=== PATIENT | female | born 1935 | race Caucasian/White ===

== ENCOUNTER 2019-01-15 13:41 | Inpatient (IN) | payer MEDICARE ==
[~2019-01-15] VITALS: Ht 157.5 cm; Wt 89.0 kg
[2019-01-15 14:36] LABS: BILIRUBIN,URINE NEGATIVE (NEG); CLARITY,URINE CLEAR; COLOR,URINE YELLOW; NITRITE,URINE NEGATIVE (NEG); PH,URINE 6.5; PROTEIN,URINE NEGATIVE (NEG-TRACE)
[2019-01-15 14:43] LABS: BACTERIA,URINE MANY /HPF (0-FEW); RBC,URINE OCC /HPF (0-2); SQUAMOUS EPITHELIAL CELL,UR MANY /LPF
--- NOTE | 2019-01-15 14:49 | RAD ---
EXAM: Chest, single view. HISTORY: Dyspnea on exertion. COMPARISON: None. FINDINGS: A frontal view of the chest is obtained. There is no infiltrate, pleural effusion or pneumothorax. There is stable elevation of the right hemidiaphragm. There is a stable prominent cardiac silhouette. IMPRESSION: No acute pulmonary finding. Electronically signed by: Darcie Lewis MD (01/15/2019 2:46 PM) [id number]
--- NOTE | 2019-01-15 14:54 | PHYS DOC ---
Adult General Chief Complaint Chief Complaint: HYPERTENSION HPI HPI Patient is an 83-year-old female who presents from accessibility lift technician's office with report of elevated blood pressure. Patient indicates that she is not really having any symptoms associated with the elevated blood pressure but her accessibility lift technician became concerned when she saw that pressure was in the 200s systolic. She denies any headache or chest pain. She does indicate that she has some shortness of breath but states that that is chronic in nature. She states that the shortness of breath is worsened on exertion. She denies any palpitations as well.[] Review of Systems Review of Systems Constitutional: Denies fever or chills [] Respiratory: Positive exertional shortness of breath [] Cardiovascular: No additional information not addressed in HPI [] GI: Denies abdominal pain, nausea, vomiting or diarrhea [] Integument: Denies rash or skin lesions [] Neurologic: Denies headache, focal weakness or sensory changes [] All other systems were reviewed and found to be within normal limits, except as documented in this note. Current Medications Current Medications Current Medications Medications (Trade) Dose Ordered Sig/Ricardo Start Time Stop Time Status Last Admin Dose Admin Diltiazem HCl (Cardizem Iv Push) 20 mg 1X ONCE 01/15/19 15:30 01/15/19 15:31 DC 01/15/19 15:32 20 MG Allergies Allergies Allergies Coded Allergies Type Severity Reaction Last Updated Verified cephalexin Allergy Intermediate rash 01/15/19 Yes naproxen Allergy Intermediate rash/hives 01/15/19 Yes Penicillins Allergy Unknown 01/15/19 Yes allopurinol Allergy Unknown 01/15/19 Yes azithromycin Allergy Unknown "made me sick" 01/15/19 Yes doxycycline Allergy Unknown 01/15/19 Yes omeprazole Allergy Unknown 01/15/19 Yes Physical Exam Physical Exam Constitutional: Well developed, well nourished, no acute distress, non-toxic appearance. [] HENT: Normocephalic, atraumatic, bilateral external ears normal, oropharynx moist, no oral exudates, nose normal. [] Eyes: PERRLA, EOMI, conjunctiva normal, no discharge. [] Neck: Normal range of motion, no tenderness, supple, no stridor. [] Cardiovascular: Tachycardic rate with irregular rhythm[] Lungs & Thorax: Bilateral breath sounds clear to auscultation [] Abdomen: Bowel sounds normal, soft, no tenderness. [] Skin: Warm, dry, no erythema, no rash. [] Extremities: No tenderness, no cyanosis, no clubbing, ROM intact, with bilateral lower extremity nonpitting edema. [] Neurologic: Alert and oriented X 3, no focal deficits noted. [] Current Patient Data Vital Signs Vital Signs Date Time Temp Pulse Resp B/P (MAP) Pulse Ox O2 Delivery O2 Flow Rate FiO2 01/15/19 15:32 97 211/114 01/15/19 14:20 97.9 20 97 Room Air 97.9 Lab Values Laboratory Tests Test 01/15/19 14:15 01/15/19 14:58 Urine Collection Type Void Urine Color Yellow Urine Clarity Clear Urine pH 6.5 Urine Specific [place] 1.015 Urine Protein Negative mg/dL (NEG-TRACE) Urine Glucose (UA) Negative mg/dL (NEG) Urine Ketones (Stick) Negative mg/dL (NEG) Urine Blood Negative (NEG) Urine Nitrite Negative (NEG) Urine Bilirubin Negative (NEG) Urine Urobilinogen Dipstick 1.0 mg/dL (0.2 mg/dL) Urine Leukocyte Esterase Trace (NEG) Urine RBC Occ /HPF (0-2) Urine WBC 1-4 /HPF (0-4) Urine Squamous Epithelial Cells Many /LPF Urine Bacteria Many /HPF (0-FEW) White Blood Count 13.6 x10^3/uL (4.0-11.0) H Red Blood Count 5.33 x10^6/uL (3.50-5.40) Hemoglobin 15.7 g/dL (12.0-15.5) H Hematocrit 47.5 % (36.0-47.0) H Mean Corpuscular Volume 89 fL (79-100) Mean Corpuscular Hemoglobin 30 pg (25-35) Mean Corpuscular Hemoglobin Concent 33 g/dL (31-37) Red Cell Distribution Width 14.5 % (11.5-14.5) Platelet Count 243 x10^3/uL (140-400) Neutrophils (%) (Auto) 79 % (31-73) H Lymphocytes (%) (Auto) 7 % (24-48) L Monocytes (%) (Auto) 13 % (0-9) H Eosinophils (%) (Auto) 1 % (0-3) Basophils (%) (Auto) 1 % (0-3) Neutrophils # (Auto) 10.7 x10^3/uL (1.8-7.7) H Lymphocytes # (Auto) 1.0 x10^3/uL (1.0-4.8) Monocytes # (Auto) 1.7 x10^3/uL (0.0-1.1) H Eosinophils # (Auto) 0.1 x10^3/uL (0.0-0.7) Basophils # (Auto) 0.1 x10^3/uL (0.0-0.2) Sodium Level 137 mmol/L (136-145) Potassium Level 4.5 mmol/L (3.5-5.1) Chloride Level 103 mmol/L (98-107) Carbon Dioxide Level 29 mmol/L (21-32) Anion Gap 5 (6-14) L Blood Urea Nitrogen 23 mg/dL (7-20) H Creatinine 1.3 mg/dL (0.6-1.0) H Estimated GFR (Cockcroft-Gault) 39.0 BUN/Creatinine Ratio 18 (6-20) Glucose Level 85 mg/dL (70-99) Calcium Level 9.3 mg/dL (8.5-10.1) Magnesium Level 2.0 mg/dL (1.8-2.4) Total Bilirubin 1.0 mg/dL (0.2-1.0) Aspartate Amino Transferase (AST) 13 U/L (15-37) L Alanine Aminotransferase (ALT) 12 U/L (14-59) L Alkaline Phosphatase 80 U/L (46-116) Troponin I Quantitative < 0.017 ng/mL (0.000-0.055) ZV-Mji-N-Type Natriuretic Peptide 6516 pg/mL (0-449) H Total Protein 7.0 g/dL (6.4-8.2) Albumin 3.6 g/dL (3.4-5.0) Albumin/Globulin Ratio 1.1 (1.0-1.7) Laboratory Tests 01/15/19 14:58 Laboratory Tests 01/15/19 14:58 EKG EKG [] Interpretation Time: EKG demonstrates atrial fibrillation with rapid ventricular response of 103. Radiology/Procedures Radiology/Procedures [] Impressions: PROCEDURE: PORTABLE CHEST 1V EXAM: Chest, single view. HISTORY: Dyspnea on exertion. COMPARISON: None. FINDINGS: A frontal view of the chest is obtained. There is no infiltrate, pleural effusion or pneumothorax. There is stable elevation of the right hemidiaphragm. There is a stable prominent cardiac silhouette. IMPRESSION: No acute pulmonary finding. Electronically signed by: Darcie Lewis MD (01/15/2019 2:46 PM) [facility] Course & Med Decision Making Course & Med Decision Making Pertinent Labs and Imaging studies reviewed. (See chart for details) [] Dragon Disclaimer Dragon Disclaimer This electronic medical record was generated, in whole or in part, using a voice recognition dictation system. Departure Departure Impression: Primary Impression: Atrial fibrillation with rapid ventricular response Additional Impression: Hypertensive urgency Disposition: 09 ADMITTED INPATIENT Admitting Physician: MARYCRUZ (Dr. Olea) Condition: IMPROVED Referrals: BLAIRE MORGAN (PCP) Problem Qualifiers PRESTON CHAPA Jr. DO Jan 15, 2019 14:54
[2019-01-15 15:06] LABS: BASO # 0.1 x10^3/uL (0.0-0.2); BASO % 1 % (0-3); EOS # 0.1 x10^3/uL (0.0-0.7); EOS % 1 % (0-3); HEMATOCRIT 47.5 % (36.0-47.0); HEMOGLOBIN 15.7 g/dL (12.0-15.5); LYMPH % 7 % (24-48); MEAN CORPUSCULAR HEMOGLOBIN 30 pg (25-35); MEAN CORPUSCULAR HGB CONC 33 g/dL (31-37); MEAN CORPUSCULAR VOLUME 89 fL (79-100); MONO # 1.7 x10^3/uL (0.0-1.1); MONO % 13 % (0-9); NEUT # 10.7 x10^3/uL (1.8-7.7); NEUT % 79 % (31-73); PLATELET COUNT 243 x10^3/uL (140-400); RED BLOOD COUNT 5.33 x10^6/uL (3.50-5.40); RED CELL DISTRIBUTION WIDTH 14.5 % (11.5-14.5); WHITE BLOOD COUNT 13.6 x10^3/uL (4.0-11.0)
[2019-01-15 15:18] LABS: CALCIUM 9.3 mg/dL (8.5-10.1); CREATININE 1.3 mg/dL (0.6-1.0); POTASSIUM 4.5 mmol/L (3.5-5.1)
[2019-01-15 15:22] LABS: ALBUMIN 3.6 g/dL (3.4-5.0); ALBUMIN/GLOBULIN RATIO 1.1 (1.0-1.7)
--- NOTE | 2019-01-15 15:23 | PDOC1 ---
History and Physical Date of Admission Date of Admission DATE: 01/15/19 TIME: 13:23 Identification/Chief Complaint Chief Complaint SEEN IN er, bp elevated in a-fib new onset rvr , presents from asset protection manager's office with report of elevated blood pressure. Patient indicates that she is not really having any symptoms associated with the elevated blood pressure but her asset protection manager became concerned when she saw that pressure was in the 200s systolic. She denies any headache or chest pain. She does indicate that she has some shortness of breath but states that that is chronic in nature. Past Medical History Cardiovascular: Hyperlipidemia Musculoskeletal: Osteoarthritis Infectious disease: No pertinent hx Renal/: Chronic renal insuff Family History Family History: High Cholestrol, Hypertension Social History Smoke: No ALCOHOL: none Drugs: None Current Medications Current Medications Current Medications Diltiazem HCl (Cardizem Iv Push) 20 mg 1X ONCE IVP ; Start 01/15/19 at 15:30; Stop 01/15/19 at 15:31 Allergies Allergies: Coded Allergies: cephalexin (Verified Allergy, Intermediate, rash, 01/15/19) naproxen (Verified Allergy, Intermediate, rash/hives, 01/15/19) Penicillins (Verified Allergy, Unknown, 01/15/19) allopurinol (Verified Allergy, Unknown, 01/15/19) azithromycin (Verified Allergy, Unknown, "made me sick", 01/15/19) doxycycline (Verified Allergy, Unknown, 01/15/19) omeprazole (Verified Allergy, Unknown, 01/15/19) ROS Review of System Review of Systems Review of Systems Constitutional: Denies fever or chills [] Respiratory: Positive exertional shortness of breath [] Cardiovascular: No additional information not addressed in HPI [] GI: Denies abdominal pain, nausea, vomiting or diarrhea [] Integument: Denies rash or skin lesions [] Neurologic: Denies headache, focal weakness or sensory changes [] 14 pt systems were reviewed and found to be within normal limits, except as documented Respiratory: YES: Shortness of breath, SOB with excertion Cardiovascular: yes Palpitations Gastrointestinal: No Nausea, No Vomiting, No Abdominal Pain, No Diarrhea, No Constipation, No Melena, No Hematochezia, No Other Musculoskeletal: Yes Joint Stiffness Neurological: Yes Gait Disturbance Physical Exam Physical Exam Physical Exam Physical Exam Constitutional: Well developed, well nourished, no acute distress, non-toxic a ppearance. [] HENT: Normocephalic, atraumatic, bilateral external ears normal, oropharynx moist, no oral exudates, nose normal. [] Eyes: PERRLA, EOMI, conjunctiva normal, no discharge. [] Neck: Normal range of motion, no tenderness, supple, no stridor. [] Cardiovascular: Tachycardic rate with irregular rhythm[] Lungs & Thorax: Bilateral breath sounds clear to auscultation [] Abdomen: Bowel sounds normal, soft, no tenderness. [] Skin: Warm, dry, no erythema, no rash. [] Extremities: No tenderness, no cyanosis, no clubbing, ROM intact, with bilateral lower extremity nonpitting edema. [] Neurologic: Alert and oriented X 3, no focal deficits noted. [] General: Alert, Oriented X3, Cooperative, No acute distress HEENT: Atraumatic, PERRLA Lungs: Clear to auscultation Heart: irregularly irregular Breasts: Not examined Abdomen: Normal bowel sounds, Soft Rectal Exam: not examined Extremities: No clubbing, No cyanosis Neuro: Normal speech, Cranial nerves 3-12 NL Psych/Mental Status: Mental status NL, Mood NL Vitals Vitals Vital Signs Date Time Temp Pulse Resp B/P (MAP) Pulse Ox O2 Delivery O2 Flow Rate FiO2 01/15/19 14:20 97.9 112 20 186/111 (136) 97 Room Air 97.9 Labs Labs Laboratory Tests Test 01/15/19 14:15 01/15/19 14:58 Urine Collection Type Void Urine Color Yellow Urine Clarity Clear Urine pH 6.5 Urine Specific [place] 1.015 Urine Protein Negative mg/dL (NEG-TRACE) Urine Glucose (UA) Negative mg/dL (NEG) Urine Ketones (Stick) Negative mg/dL (NEG) Urine Blood Negative (NEG) Urine Nitrite Negative (NEG) Urine Bilirubin Negative (NEG) Urine Urobilinogen Dipstick 1.0 mg/dL (0.2 mg/dL) Urine Leukocyte Esterase Trace (NEG) Urine RBC Occ /HPF (0-2) Urine WBC 1-4 /HPF (0-4) Urine Squamous Epithelial Cells Many /LPF Urine Bacteria Many /HPF (0-FEW) White Blood Count 13.6 x10^3/uL (4.0-11.0) Red Blood Count 5.33 x10^6/uL (3.50-5.40) Hemoglobin 15.7 g/dL (12.0-15.5) Hematocrit 47.5 % (36.0-47.0) Mean Corpuscular Volume 89 fL (79-100) Mean Corpuscular Hemoglobin 30 pg (25-35) Mean Corpuscular Hemoglobin Concent 33 g/dL (31-37) Red Cell Distribution Width 14.5 % (11.5-14.5) Platelet Count 243 x10^3/uL (140-400) Neutrophils (%) (Auto) 79 % (31-73) Lymphocytes (%) (Auto) 7 % (24-48) Monocytes (%) (Auto) 13 % (0-9) Eosinophils (%) (Auto) 1 % (0-3) Basophils (%) (Auto) 1 % (0-3) Neutrophils # (Auto) 10.7 x10^3/uL (1.8-7.7) Lymphocytes # (Auto) 1.0 x10^3/uL (1.0-4.8) Monocytes # (Auto) 1.7 x10^3/uL (0.0-1.1) Eosinophils # (Auto) 0.1 x10^3/uL (0.0-0.7) Basophils # (Auto) 0.1 x10^3/uL (0.0-0.2) Sodium Level 137 mmol/L (136-145) Potassium Level 4.5 mmol/L (3.5-5.1) Chloride Level 103 mmol/L (98-107) Carbon Dioxide Level 29 mmol/L (21-32) Anion Gap 5 (6-14) Blood Urea Nitrogen 23 mg/dL (7-20) Creatinine 1.3 mg/dL (0.6-1.0) Estimated GFR (Cockcroft-Gault) 39.0 BUN/Creatinine Ratio 18 (6-20) Glucose Level 85 mg/dL (70-99) Calcium Level 9.3 mg/dL (8.5-10.1) Magnesium Level 2.0 mg/dL (1.8-2.4) Total Bilirubin 1.0 mg/dL (0.2-1.0) Aspartate Amino Transf (AST/SGOT) 13 U/L (15-37) Alanine Aminotransferase (ALT/SGPT) 12 U/L (14-59) Alkaline Phosphatase 80 U/L (46-116) Total Protein 7.0 g/dL (6.4-8.2) Albumin 3.6 g/dL (3.4-5.0) Albumin/Globulin Ratio 1.1 (1.0-1.7) Laboratory Tests Test 01/15/19 14:15 01/15/19 14:58 Urine Collection Type Void Urine Color Yellow Urine Clarity Clear Urine pH 6.5 Urine Specific [place] 1.015 Urine Protein Negative mg/dL (NEG-TRACE) Urine Glucose (UA) Negative mg/dL (NEG) Urine Ketones (Stick) Negative mg/dL (NEG) Urine Blood Negative (NEG) Urine Nitrite Negative (NEG) Urine Bilirubin Negative (NEG) Urine Urobilinogen Dipstick 1.0 mg/dL (0.2 mg/dL) Urine Leukocyte Esterase Trace (NEG) Urine RBC Occ /HPF (0-2) Urine WBC 1-4 /HPF (0-4) Urine Squamous Epithelial Cells Many /LPF Urine Bacteria Many /HPF (0-FEW) White Blood Count 13.6 x10^3/uL (4.0-11.0) Red Blood Count 5.33 x10^6/uL (3.50-5.40) Hemoglobin 15.7 g/dL (12.0-15.5) Hematocrit 47.5 % (36.0-47.0) Mean Corpuscular Volume 89 fL (79-100) Mean Corpuscular Hemoglobin 30 pg (25-35) Mean Corpuscular Hemoglobin Concent 33 g/dL (31-37) Red Cell Distribution Width 14.5 % (11.5-14.5) Platelet Count 243 x10^3/uL (140-400) Neutrophils (%) (Auto) 79 % (31-73) Lymphocytes (%) (Auto) 7 % (24-48) Monocytes (%) (Auto) 13 % (0-9) Eosinophils (%) (Auto) 1 % (0-3) Basophils (%) (Auto) 1 % (0-3) Neutrophils # (Auto) 10.7 x10^3/uL (1.8-7.7) Lymphocytes # (Auto) 1.0 x10^3/uL (1.0-4.8) Monocytes # (Auto) 1.7 x10^3/uL (0.0-1.1) Eosinophils # (Auto) 0.1 x10^3/uL (0.0-0.7) Basophils # (Auto) 0.1 x10^3/uL (0.0-0.2) Sodium Level 137 mmol/L (136-145) Potassium Level 4.5 mmol/L (3.5-5.1) Chloride Level 103 mmol/L (98-107) Carbon Dioxide Level 29 mmol/L (21-32) Anion Gap 5 (6-14) Blood Urea Nitrogen 23 mg/dL (7-20) Creatinine 1.3 mg/dL (0.6-1.0) Estimated GFR (Cockcroft-Gault) 39.0 BUN/Creatinine Ratio 18 (6-20) Glucose Level 85 mg/dL (70-99) Calcium Level 9.3 mg/dL (8.5-10.1) Magnesium Level 2.0 mg/dL (1.8-2.4) Total Bilirubin 1.0 mg/dL (0.2-1.0) Aspartate Amino Transf (AST/SGOT) 13 U/L (15-37) Alanine Aminotransferase (ALT/SGPT) 12 U/L (14-59) Alkaline Phosphatase 80 U/L (46-116) Total Protein 7.0 g/dL (6.4-8.2) Albumin 3.6 g/dL (3.4-5.0) Albumin/Globulin Ratio 1.1 (1.0-1.7) VTE Prophylaxis Ordered VTE Prophylaxis Devices: Yes VTE Pharmacological Prophylaxi: Yes Assessment/Plan Assessment/Plan impression 1. hypertensive urgency 2. new onset a- fib rvr 3. morbid obesity plan admit iv cardizem cardiology consult tsh dvt prophylaxis echo 55 min pt exam, chart review, > 50% of time spent with exam, chart review, pt care coordination VIPIN VAN MD Jan 15, 2019 15:23
--- NOTE | 2019-01-15 15:24 | EKG ---
[facility] [address] [place] [address] Test Date: 2019-01-15 Test Time: 14:54:49 Pat Name: LIGIA MATUTE Department: Room: Gender: F Hand Singer: : [phone] Requested By: PRESTON CHAPA Order Number: [id number] Reading MD: Measurements Intervals [place] Rate: 102 P: MD: QRS: -13 QRSD: 102 T: -7 QT: 342 QTc: 450 Interpretive Statements ATRIAL FIB./FLUTTER WITH RAPID VENTRICULAR RESPONSE LEFTWARD AXIS QRS(T) CONTOUR ABNORMALITY CONSISTENT WITH ANTEROSEPTAL INFARCT PROBABLY OLD ABNORMAL ECG No previous ECG available for comparison
[2019-01-15] MEDS ORDERED: dilTIAZem IV PUSH 25 MG/5 ML VIAL IVP ONE (15:30)
[2019-01-15] MEDS ORDERED: ONDANSETRON PF 4 MG/2 ML VIAL. IV PRN ×2 (15:45→16:30)
[2019-01-15] MEDS ORDERED: MORPHINE SULFATE 2 MG/ML VIAL. IV PRN (15:45)
[2019-01-15] MEDS ORDERED: 0.9 % SODIUM CHLORIDE 10 ML DISP.SYRIN. IV PRN (16:30)
[2019-01-15] MEDS ORDERED: ALBUTEROL SULFATE 2.5 MG/3 ML NEBU. NEB PRN (16:30)
[2019-01-15] MEDS ORDERED: guaiFENesin ORAL 200 MG/10 ML LIQUID. PO PRN (16:30)
[2019-01-15] MEDS ORDERED: ZOLPIDEM 5 MG TABLET. PO PRN (16:30)
[2019-01-15] MEDS ORDERED: LORazepam 0.5 MG TABLET PO PRN (16:30)
[2019-01-15] MEDS ORDERED: ACETAMINOPHEN 325 MG TABLET. PO PRN (16:30)
[2019-01-15] MEDS ORDERED: MAG HYDROX/ALUMINUM HYD/SIMETH 30 ML ORAL.SUSP PO PRN (16:30)
[2019-01-15] MEDS: cloNIDine HCL 0.1 MG TABLET PO PRN ×2 (17:05→23:21)
[2019-01-15 17:30] VITALS: BP 186/92
[2019-01-15] MEDS ORDERED: LISI-334 PO (17:57)
[2019-01-15] MEDS ORDERED: FLUC200T4 PO (17:57)
[2019-01-15] MEDS ORDERED: dilTIAZem INJ 125 MG in IV DEXTROSE 5% 100ML 100 ML IV PRN (18:30)
[2019-01-15 19:09] VITALS: BP 166/78
[2019-01-15] MEDS: hydrALAZINE 20 MG/ML VIAL. IVP PRN (19:50)
[2019-01-15] MEDS: LISINOPRIL 20 MG TABLET PO SCH (20:18)
[2019-01-15 23:09] VITALS: BP 194/105
[2019-01-16 03:06] VITALS: BP 201/96
[2019-01-16] MEDS: hydrALAZINE 20 MG/ML VIAL. IVP PRN (03:16)
[2019-01-16 04:20] LABS: BASO % 0 % (0-3); EOS # 0.2 x10^3/uL (0.0-0.7); EOS % 2 % (0-3); HEMATOCRIT 45.1 % (36.0-47.0); HEMOGLOBIN 14.9 g/dL (12.0-15.5); LYMPH # 1.4 x10^3/uL (1.0-4.8); LYMPH % 11 % (24-48); MEAN CORPUSCULAR HEMOGLOBIN 29 pg (25-35); MEAN CORPUSCULAR HGB CONC 33 g/dL (31-37); MEAN CORPUSCULAR VOLUME 89 fL (79-100); MONO # 1.2 x10^3/uL (0.0-1.1); MONO % 9 % (0-9); NEUT % 78 % (31-73); PLATELET COUNT 226 x10^3/uL (140-400); RED BLOOD COUNT 5.08 x10^6/uL (3.50-5.40); RED CELL DISTRIBUTION WIDTH 14.6 % (11.5-14.5); WHITE BLOOD COUNT 12.8 x10^3/uL (4.0-11.0)
[2019-01-16 04:40] LABS: CREATININE 1.4 mg/dL (0.6-1.0); GFR 35.8; POTASSIUM 4.4 mmol/L (3.5-5.1)
[2019-01-16 07:33] VITALS: BP 142/68
[2019-01-16] MEDS: FLUCONAZOLE 100 MG TABLET. PO SCH (09:00)
[2019-01-16] MEDS ORDERED: ENOXAPARIN 40 MG/0.4 ML SYRINGE. SQ SCH (09:00)
--- NOTE | 2019-01-16 09:20 | PDOC ---
PROGRESS NOTES History of Present Illness History of Present Illness VTE Prophylaxis Ordered VTE Prophylaxis Devices: Yes VTE Pharmacological Prophylaxi: Yes Assessment/Plan Assessment/Plan impression 1. hypertensive urgency 2. new onset a- fib rvr 3. morbid obesity 4. HYPERLIPIDEMIA plan admit iv cardizem cardiology consult tsh dvt prophylaxis echo ELIQUIS 26 min pt exam, chart review, > 50% of time spent with exam, chart review, pt care coordination Vitals Vitals Vital Signs Date Time Temp Pulse Resp B/P (MAP) Pulse Ox O2 Delivery O2 Flow Rate FiO2 01/16/19 07:33 98.0 88 16 142/68 (92) 96 Room Air 98.0 Physical Exam General: Alert, Oriented X3, Cooperative, No acute distress Heart: Other (IRR) Abdomen: Normal bowel sounds, Soft, No tenderness Extremities: No clubbing, No cyanosis Labs LABS Laboratory Tests Test 01/15/19 14:15 01/15/19 14:58 01/16/19 04:00 Urine Collection Type Void Urine Color Yellow Urine Clarity Clear Urine pH 6.5 Urine Specific [place] 1.015 Urine Protein Negative mg/dL (NEG-TRACE) Urine Glucose (UA) Negative mg/dL (NEG) Urine Ketones (Stick) Negative mg/dL (NEG) Urine Blood Negative (NEG) Urine Nitrite Negative (NEG) Urine Bilirubin Negative (NEG) Urine Urobilinogen Dipstick 1.0 mg/dL (0.2 mg/dL) Urine Leukocyte Esterase Trace (NEG) Urine RBC Occ /HPF (0-2) Urine WBC 1-4 /HPF (0-4) Urine Squamous Epithelial Cells Many /LPF Urine Bacteria Many /HPF (0-FEW) White Blood Count 13.6 x10^3/uL (4.0-11.0) 12.8 x10^3/uL (4.0-11.0) Red Blood Count 5.33 x10^6/uL (3.50-5.40) 5.08 x10^6/uL (3.50-5.40) Hemoglobin 15.7 g/dL (12.0-15.5) 14.9 g/dL (12.0-15.5) Hematocrit 47.5 % (36.0-47.0) 45.1 % (36.0-47.0) Mean Corpuscular Volume 89 fL (79-100) 89 fL (79-100) Mean Corpuscular Hemoglobin 30 pg (25-35) 29 pg (25-35) Mean Corpuscular Hemoglobin Concent 33 g/dL (31-37) 33 g/dL (31-37) Red Cell Distribution Width 14.5 % (11.5-14.5) 14.6 % (11.5-14.5) Platelet Count 243 x10^3/uL (140-400) 226 x10^3/uL (140-400) Neutrophils (%) (Auto) 79 % (31-73) 78 % (31-73) Lymphocytes (%) (Auto) 7 % (24-48) 11 % (24-48) Monocytes (%) (Auto) 13 % (0-9) 9 % (0-9) Eosinophils (%) (Auto) 1 % (0-3) 2 % (0-3) Basophils (%) (Auto) 1 % (0-3) 0 % (0-3) Neutrophils # (Auto) 10.7 x10^3/uL (1.8-7.7) 10.0 x10^3/uL (1.8-7.7) Lymphocytes # (Auto) 1.0 x10^3/uL (1.0-4.8) 1.4 x10^3/uL (1.0-4.8) Monocytes # (Auto) 1.7 x10^3/uL (0.0-1.1) 1.2 x10^3/uL (0.0-1.1) Eosinophils # (Auto) 0.1 x10^3/uL (0.0-0.7) 0.2 x10^3/uL (0.0-0.7) Basophils # (Auto) 0.1 x10^3/uL (0.0-0.2) 0.0 x10^3/uL (0.0-0.2) Sodium Level 137 mmol/L (136-145) 137 mmol/L (136-145) Potassium Level 4.5 mmol/L (3.5-5.1) 4.4 mmol/L (3.5-5.1) Chloride Level 103 mmol/L (98-107) 103 mmol/L (98-107) Carbon Dioxide Level 29 mmol/L (21-32) 24 mmol/L (21-32) Anion Gap 5 (6-14) 10 (6-14) Blood Urea Nitrogen 23 mg/dL (7-20) 25 mg/dL (7-20) Creatinine 1.3 mg/dL (0.6-1.0) 1.4 mg/dL (0.6-1.0) Estimated GFR (Cockcroft-Gault) 39.0 35.8 BUN/Creatinine Ratio 18 (6-20) Glucose Level 85 mg/dL (70-99) 121 mg/dL (70-99) Calcium Level 9.3 mg/dL (8.5-10.1) 9.0 mg/dL (8.5-10.1) Magnesium Level 2.0 mg/dL (1.8-2.4) Total Bilirubin 1.0 mg/dL (0.2-1.0) Aspartate Amino Transf (AST/SGOT) 13 U/L (15-37) Alanine Aminotransferase (ALT/SGPT) 12 U/L (14-59) Alkaline Phosphatase 80 U/L (46-116) Troponin I Quantitative < 0.017 ng/mL (0.000-0.055) NQ-[id number]-[id number]-Type Natriuretic Peptide 6516 pg/mL (0-449) Total Protein 7.0 g/dL (6.4-8.2) Albumin 3.6 g/dL (3.4-5.0) Albumin/Globulin Ratio 1.1 (1.0-1.7) Thyroid Stimulating Hormone (TSH) 1.416 uIU/mL (0.358-3.74) Assessment and Plan Assessmemt and Plan Problems Medical Problems: (1) Atrial fibrillation with rapid ventricular response Status: Acute (2) Hypertensive urgency Status: Acute Comment Review of Relevant I have reviewed the following items salvador (where applicable) has been applied. Labs Laboratory Tests Test 01/15/19 14:15 01/15/19 14:58 01/16/19 04:00 Urine Collection Type Void Urine Color Yellow Urine Clarity Clear Urine pH 6.5 Urine Specific [place] 1.015 Urine Protein Negative mg/dL (NEG-TRACE) Urine Glucose (UA) Negative mg/dL (NEG) Urine Ketones (Stick) Negative mg/dL (NEG) Urine Blood Negative (NEG) Urine Nitrite Negative (NEG) Urine Bilirubin Negative (NEG) Urine Urobilinogen Dipstick 1.0 mg/dL (0.2 mg/dL) Urine Leukocyte Esterase Trace (NEG) Urine RBC Occ /HPF (0-2) Urine WBC 1-4 /HPF (0-4) Urine Squamous Epithelial Cells Many /LPF Urine Bacteria Many /HPF (0-FEW) White Blood Count 13.6 x10^3/uL (4.0-11.0) 12.8 x10^3/uL (4.0-11.0) Red Blood Count 5.33 x10^6/uL (3.50-5.40) 5.08 x10^6/uL (3.50-5.40) Hemoglobin 15.7 g/dL (12.0-15.5) 14.9 g/dL (12.0-15.5) Hematocrit 47.5 % (36.0-47.0) 45.1 % (36.0-47.0) Mean Corpuscular Volume 89 fL (79-100) 89 fL (79-100) Mean Corpuscular Hemoglobin 30 pg (25-35) 29 pg (25-35) Mean Corpuscular Hemoglobin Concent 33 g/dL (31-37) 33 g/dL (31-37) Red Cell Distribution Width 14.5 % (11.5-14.5) 14.6 % (11.5-14.5) Platelet Count 243 x10^3/uL (140-400) 226 x10^3/uL (140-400) Neutrophils (%) (Auto) 79 % (31-73) 78 % (31-73) Lymphocytes (%) (Auto) 7 % (24-48) 11 % (24-48) Monocytes (%) (Auto) 13 % (0-9) 9 % (0-9) Eosinophils (%) (Auto) 1 % (0-3) 2 % (0-3) Basophils (%) (Auto) 1 % (0-3) 0 % (0-3) Neutrophils # (Auto) 10.7 x10^3/uL (1.8-7.7) 10.0 x10^3/uL (1.8-7.7) Lymphocytes # (Auto) 1.0 x10^3/uL (1.0-4.8) 1.4 x10^3/uL (1.0-4.8) Monocytes # (Auto) 1.7 x10^3/uL (0.0-1.1) 1.2 x10^3/uL (0.0-1.1) Eosinophils # (Auto) 0.1 x10^3/uL (0.0-0.7) 0.2 x10^3/uL (0.0-0.7) Basophils # (Auto) 0.1 x10^3/uL (0.0-0.2) 0.0 x10^3/uL (0.0-0.2) Sodium Level 137 mmol/L (136-145) 137 mmol/L (136-145) Potassium Level 4.5 mmol/L (3.5-5.1) 4.4 mmol/L (3.5-5.1) Chloride Level 103 mmol/L (98-107) 103 mmol/L (98-107) Carbon Dioxide Level 29 mmol/L (21-32) 24 mmol/L (21-32) Anion Gap 5 (6-14) 10 (6-14) Blood Urea Nitrogen 23 mg/dL (7-20) 25 mg/dL (7-20) Creatinine 1.3 mg/dL (0.6-1.0) 1.4 mg/dL (0.6-1.0) Estimated GFR (Cockcroft-Gault) 39.0 35.8 BUN/Creatinine Ratio 18 (6-20) Glucose Level 85 mg/dL (70-99) 121 mg/dL (70-99) Calcium Level 9.3 mg/dL (8.5-10.1) 9.0 mg/dL (8.5-10.1) Magnesium Level 2.0 mg/dL (1.8-2.4) Total Bilirubin 1.0 mg/dL (0.2-1.0) Aspartate Amino Transf (AST/SGOT) 13 U/L (15-37) Alanine Aminotransferase (ALT/SGPT) 12 U/L (14-59) Alkaline Phosphatase 80 U/L (46-116) Troponin I Quantitative < 0.017 ng/mL (0.000-0.055) MI-Zli-K-Type Natriuretic Peptide 6516 pg/mL (0-449) Total Protein 7.0 g/dL (6.4-8.2) Albumin 3.6 g/dL (3.4-5.0) Albumin/Globulin Ratio 1.1 (1.0-1.7) Thyroid Stimulating Hormone (TSH) 1.416 uIU/mL (0.358-3.74) Laboratory Tests Test 01/15/19 14:15 01/15/19 14:58 01/16/19 04:00 Urine Collection Type Void Urine Color Yellow Urine Clarity Clear Urine pH 6.5 Urine Specific [place] 1.015 Urine Protein Negative mg/dL (NEG-TRACE) Urine Glucose (UA) Negative mg/dL (NEG) Urine Ketones (Stick) Negative mg/dL (NEG) Urine Blood Negative (NEG) Urine Nitrite Negative (NEG) Urine Bilirubin Negative (NEG) Urine Urobilinogen Dipstick 1.0 mg/dL (0.2 mg/dL) Urine Leukocyte Esterase Trace (NEG) Urine RBC Occ /HPF (0-2) Urine WBC 1-4 /HPF (0-4) Urine Squamous Epithelial Cells Many /LPF Urine Bacteria Many /HPF (0-FEW) White Blood Count 13.6 x10^3/uL (4.0-11.0) 12.8 x10^3/uL (4.0-11.0) Red Blood Count 5.33 x10^6/uL (3.50-5.40) 5.08 x10^6/uL (3.50-5.40) Hemoglobin 15.7 g/dL (12.0-15.5) 14.9 g/dL (12.0-15.5) Hematocrit 47.5 % (36.0-47.0) 45.1 % (36.0-47.0) Mean Corpuscular Volume 89 fL (79-100) 89 fL (79-100) Mean Corpuscular Hemoglobin 30 pg (25-35) 29 pg (25-35) Mean Corpuscular Hemoglobin Concent 33 g/dL (31-37) 33 g/dL (31-37) Red Cell Distribution Width 14.5 % (11.5-14.5) 14.6 % (11.5-14.5) Platelet Count 243 x10^3/uL (140-400) 226 x10^3/uL (140-400) Neutrophils (%) (Auto) 79 % (31-73) 78 % (31-73) Lymphocytes (%) (Auto) 7 % (24-48) 11 % (24-48) Monocytes (%) (Auto) 13 % (0-9) 9 % (0-9) Eosinophils (%) (Auto) 1 % (0-3) 2 % (0-3) Basophils (%) (Auto) 1 % (0-3) 0 % (0-3) Neutrophils # (Auto) 10.7 x10^3/uL (1.8-7.7) 10.0 x10^3/uL (1.8-7.7) Lymphocytes # (Auto) 1.0 x10^3/uL (1.0-4.8) 1.4 x10^3/uL (1.0-4.8) Monocytes # (Auto) 1.7 x10^3/uL (0.0-1.1) 1.2 x10^3/uL (0.0-1.1) Eosinophils # (Auto) 0.1 x10^3/uL (0.0-0.7) 0.2 x10^3/uL (0.0-0.7) Basophils # (Auto) 0.1 x10^3/uL (0.0-0.2) 0.0 x10^3/uL (0.0-0.2) Sodium Level 137 mmol/L (136-145) 137 mmol/L (136-145) Potassium Level 4.5 mmol/L (3.5-5.1) 4.4 mmol/L (3.5-5.1) Chloride Level 103 mmol/L (98-107) 103 mmol/L (98-107) Carbon Dioxide Level 29 mmol/L (21-32) 24 mmol/L (21-32) Anion Gap 5 (6-14) 10 (6-14) Blood Urea Nitrogen 23 mg/dL (7-20) 25 mg/dL (7-20) Creatinine 1.3 mg/dL (0.6-1.0) 1.4 mg/dL (0.6-1.0) Estimated GFR (Cockcroft-Gault) 39.0 35.8 BUN/Creatinine Ratio 18 (6-20) Glucose Level 85 mg/dL (70-99) 121 mg/dL (70-99) Calcium Level 9.3 mg/dL (8.5-10.1) 9.0 mg/dL (8.5-10.1) Magnesium Level 2.0 mg/dL (1.8-2.4) Total Bilirubin 1.0 mg/dL (0.2-1.0) Aspartate Amino Transf (AST/SGOT) 13 U/L (15-37) Alanine Aminotransferase (ALT/SGPT) 12 U/L (14-59) Alkaline Phosphatase 80 U/L (46-116) Troponin I Quantitative < 0.017 ng/mL (0.000-0.055) PQ-Hvc-R-Type Natriuretic Peptide 6516 pg/mL (0-449) Total Protein 7.0 g/dL (6.4-8.2) Albumin 3.6 g/dL (3.4-5.0) Albumin/Globulin Ratio 1.1 (1.0-1.7) Thyroid Stimulating Hormone (TSH) 1.416 uIU/mL (0.358-3.74) Medications Current Medications Diltiazem HCl (Cardizem Iv Push) 20 mg 1X ONCE IVP Last administered on 01/15/19at 15:32; Start 01/15/19 at 15:30; Stop 01/15/19 at 15:31; Status DC Ondansetron HCl (Zofran) 4 mg PRN Q8HRS PRN IV NAUSEA/VOMITING; Start 01/15/19 at 15:45; Stop 01/16/19 at 15:44 Morphine Sulfate (Morphine Sulfate) 2 mg PRN Q2HR PRN IV PAIN; Start 01/15/19 at 15:45; Stop 01/16/19 at 15:44 Sodium Chloride (Normal Saline Flush) 3 ml QSHIFT PRN IV AFTER MEDS AND BLOOD DRAWS; Start 01/15/19 at 16:30 Ondansetron HCl (Zofran) 4 mg PRN Q4HRS PRN IV NAUSEA/VOMITING; Start 01/15/19 at 16:30 Zolpidem Tartrate (Ambien) 5 mg PRN QHS PRN PO INSOMNIA; Start 01/15/19 at 16:30 Acetaminophen (Tylenol) 650 mg PRN Q4HRS PRN PO TEMP OVER 100.4F OR MILD PAIN; Start 01/15/19 at 16:30 Al Hydroxide/Mg Hydroxide (Mylanta Plus Xs) 30 ml PRN DAILY PRN PO HEARTBURN / GAS; Start 01/15/19 at 16:30 Clonidine HCl (Catapres) 0.1 mg PRN Q6HRS PRN PO SBP>160 OR DBP>90 Last administered on 01/15/19at 23:21; Start 01/15/19 at 16:30 Docusate Sodium (Colace) 100 mg PRN BID PRN PO CONSTIPATION; Start 01/15/19 at 16:30 Albuterol Sulfate (Ventolin Neb Soln) 2.5 mg PRN Q4HRS PRN NEB SHORTNESS OF BREATH; Start 01/15/19 at 16:30 Guaifenesin (Robitussin) 200 mg PRN Q4HRS PRN PO COUGH; Start 01/15/19 at 16:30 Lorazepam (Ativan) 0.5 mg PRN Q4HRS PRN PO ANXIETY / AGITATION; Start 01/15/19 at 16:30 Enoxaparin Sodium (Lovenox 40mg Syringe) 40 mg DAILY SQ ; Start 01/16/19 at 09:00 Hydralazine HCl (Apresoline Inj) 20 mg PRN Q4HRS PRN IVP ELEVATED BP, SEE COMMENTS Last administered on 01/16/19at 03:16; Start 01/15/19 at 18:30 Diltiazem HCl 125 mg/Dextrose 125 ml @ 5 mls/hr CONT PRN IV SEE I/O RECORD; Start 01/15/19 at 18:30 Lisinopril (Prinivil) 20 mg BID PO Last administered on 01/15/19at 20:18; Start 01/15/19 at 21:00 Fluconazole (Diflucan) 200 mg DAILY PO ; Start 01/16/19 at 09:00 Active Scripts Active Reported Fluconazole 200 Mg Tablet 1 Tab PO DAILY Lisinopril 20 Mg Tablet 1 Tab PO BID Vitals/I & O Vital Sign - Last 24 Hours 01/15/19 01/15/19 01/15/19 01/15/19 14:20 15:00 15:30 15:32 Temp 97.9 97.9 Pulse 112 98 96 97 Resp 20 18 18 B/P (MAP) 186/111 (136) 211/114 Pulse Ox 97 97 97 O2 Delivery Room Air 01/15/19 01/15/19 01/15/19 01/15/19 16:00 16:30 17:00 17:05 Pulse 82 86 88 92 Resp 18 18 18 B/P (MAP) 224/93 Pulse Ox 97 95 96 01/15/19 01/15/19 01/15/19 01/15/19 17:30 19:09 19:28 19:50 Temp 97.9 97.4 97.9 97.4 Pulse 96 89 89 Resp 18 16 B/P (MAP) 186/92 (123) 166/78 (107) 181/79 Pulse Ox 97 94 O2 Delivery Room Air Room Air Room Air 01/15/19 01/15/19 01/15/19 01/15/19 20:00 20:18 20:34 23:09 Temp 97.8 97.8 Pulse 90 96 Resp 18 B/P (MAP) 159/88 194/105 (134) Pulse Ox 95 96 O2 Delivery Room Air Room Air 01/15/19 01/16/19 01/16/19 01/16/19 23:21 03:06 03:16 07:33 Temp 98.5 98.0 98.5 98.0 Pulse 105 91 89 88 Resp 16 16 B/P (MAP) 194/105 201/96 (131) 193/107 142/68 (92) Pulse Ox 96 96 O2 Delivery Room Air Room Air Intake and Output 01/15/19 01/15/19 01/16/19 15:00 23:00 07:00 Intake Total 180 ml 320 ml Output Total 350 ml 250 ml Balance -170 ml 70 ml VIPNI VAN MD Jan 16, 2019 09:20
[2019-01-16] MEDS: LISINOPRIL 20 MG TABLET PO SCH ×2 (09:25→20:46)
--- NOTE | 2019-01-16 09:40 | PDOC2 ---
EVA HERNANDEZ DEPUTY SHERIFF GENERALIST/BAILIFF 01/16/19 0940: CARDIAC CONSULT DATE OF CONSULT Date of Consult DATE: 01/16/19 TIME: 09:34 REASON FOR CONSULT Reason for Consult: AFIB with RVR REFERRING PHYSICIAN Referring Physician: Dr. Smalls SOURCE Source: Chart review, Patient HISTORY OF PRESENT ILLNESS HISTORY OF PRESENT ILLNESS This is an 83 yo female who presented secondary to elevated blood pressure. Patient was at routine check up with nurses superintendent. Blood pressure was noted to be significantly elevated with SBP in the 200 range. Was referred to the ED for further evaluation and treatment. Patient denies any complaints including chest pain, palpitations, diaphoresis, SOA, or LE edema. No prior history of CAD. Was noted in AFIB with RVR upon arrival. Cardizem bolus was administered. Rate has been mostly controlled. Cardizem gtt was not initiated. PAST MEDICAL HISTORY Cardiovascular: HTN, Hyperlipidemia GI: GERD Musculoskeletal: Osteoarthritis Renal/: Chronic renal insuff PAST SURGICAL HISTORY Past Surgical History: Hysterectomy FAMILY HISTORY Family History: Heart Disease, Hypertension SOCIAL HISTORY Smoke: No ALCOHOL: none Drugs: None Lives: with Family CURRENT MEDICATIONS CURRENT MEDICATIONS Current Medications Medications (Trade) Dose Ordered Sig/Ricardo Route PRN Reason Start Time Stop Time Status Last Admin Dose Admin Diltiazem HCl (Cardizem Iv Push) 20 mg 1X ONCE IVP 01/15/19 15:30 01/15/19 15:31 DC 01/15/19 15:32 Clonidine HCl (Catapres) 0.1 mg PRN Q6HRS PRN PO SBP>160 OR DBP>90 01/15/19 16:30 01/15/19 23:21 Hydralazine HCl (Apresoline Inj) 20 mg PRN Q4HRS PRN IVP ELEVATED BP, SEE COMMENTS 01/15/19 18:30 01/16/19 03:16 Lisinopril (Prinivil) 20 mg BID PO 01/15/19 21:00 01/16/19 09:25 ALLERGIES ALLERGIES: Coded Allergies: Penicillins (Verified Allergy, Intermediate, 01/16/19) allopurinol (Verified Allergy, Intermediate, 01/16/19) cephalexin (Verified Allergy, Intermediate, rash, 01/15/19) doxycycline (Verified Allergy, Intermediate, 01/16/19) naproxen (Verified Allergy, Intermediate, rash/hives, 01/15/19) azithromycin (Verified Allergy, Mild, "made me sick", 01/16/19) omeprazole (Verified Allergy, Mild, 01/16/19) ROS Review of System 14 point ROS conducted with pertinent positives noted above in HPI PHYSICAL EXAM General: Alert, Oriented X3, Cooperative, No acute distress HEENT: Atraumatic Lungs: Clear to auscultation Heart: Normal S1, Normal S2, No murmurs, Other (IRR; AFIB rate controlled ) Abdomen: Soft, No tenderness Extremities: No edema, Normal pulses Neuro: Normal speech, Sensation intact Psych/Mental Status: Mental status NL, Mood NL MUSCULOSKELETAL: Osteoarthritic changes both hands VITALS/I&O VITALS/I&O: Vital Signs Date Time Temp Pulse Resp B/P (MAP) Pulse Ox O2 Delivery O2 Flow Rate FiO2 01/16/19 09:25 88 142/68 01/16/19 07:33 98.0 16 96 Room Air 98.0 I & O 01/15/19 01/15/19 01/16/19 15:00 23:00 07:00 Intake Total 180 ml 320 ml Output Total 350 ml 250 ml Balance -170 ml 70 ml LABS Lab: Laboratory Tests Test 01/15/19 14:15 01/15/19 14:58 01/16/19 04:00 Urine Collection Type Void Urine Color Yellow Urine Clarity Clear Urine pH 6.5 Urine Specific [place] 1.015 Urine Protein Negative mg/dL (NEG-TRACE) Urine Glucose (UA) Negative mg/dL (NEG) Urine Ketones (Stick) Negative mg/dL (NEG) Urine Blood Negative (NEG) Urine Nitrite Negative (NEG) Urine Bilirubin Negative (NEG) Urine Urobilinogen Dipstick 1.0 mg/dL (0.2 mg/dL) Urine Leukocyte Esterase Trace (NEG) Urine RBC Occ /HPF (0-2) Urine WBC 1-4 /HPF (0-4) Urine Squamous Epithelial Cells Many /LPF Urine Bacteria Many /HPF (0-FEW) White Blood Count 13.6 x10^3/uL (4.0-11.0) H 12.8 x10^3/uL (4.0-11.0) H Red Blood Count 5.33 x10^6/uL (3.50-5.40) 5.08 x10^6/uL (3.50-5.40) Hemoglobin 15.7 g/dL (12.0-15.5) H 14.9 g/dL (12.0-15.5) Hematocrit 47.5 % (36.0-47.0) H 45.1 % (36.0-47.0) Mean Corpuscular Volume 89 fL (79-100) 89 fL (79-100) Mean Corpuscular Hemoglobin 30 pg (25-35) 29 pg (25-35) Mean Corpuscular Hemoglobin Concent 33 g/dL (31-37) 33 g/dL (31-37) Red Cell Distribution Width 14.5 % (11.5-14.5) 14.6 % (11.5-14.5) H Platelet Count 243 x10^3/uL (140-400) 226 x10^3/uL (140-400) Neutrophils (%) (Auto) 79 % (31-73) H 78 % (31-73) H Lymphocytes (%) (Auto) 7 % (24-48) L 11 % (24-48) L Monocytes (%) (Auto) 13 % (0-9) H 9 % (0-9) Eosinophils (%) (Auto) 1 % (0-3) 2 % (0-3) Basophils (%) (Auto) 1 % (0-3) 0 % (0-3) Neutrophils # (Auto) 10.7 x10^3/uL (1.8-7.7) H 10.0 x10^3/uL (1.8-7.7) H Lymphocytes # (Auto) 1.0 x10^3/uL (1.0-4.8) 1.4 x10^3/uL (1.0-4.8) Monocytes # (Auto) 1.7 x10^3/uL (0.0-1.1) H 1.2 x10^3/uL (0.0-1.1) H Eosinophils # (Auto) 0.1 x10^3/uL (0.0-0.7) 0.2 x10^3/uL (0.0-0.7) Basophils # (Auto) 0.1 x10^3/uL (0.0-0.2) 0.0 x10^3/uL (0.0-0.2) Sodium Level 137 mmol/L (136-145) 137 mmol/L (136-145) Potassium Level 4.5 mmol/L (3.5-5.1) 4.4 mmol/L (3.5-5.1) Chloride Level 103 mmol/L (98-107) 103 mmol/L (98-107) Carbon Dioxide Level 29 mmol/L (21-32) 24 mmol/L (21-32) Anion Gap 5 (6-14) L 10 (6-14) Blood Urea Nitrogen 23 mg/dL (7-20) H 25 mg/dL (7-20) H Creatinine 1.3 mg/dL (0.6-1.0) H 1.4 mg/dL (0.6-1.0) H Estimated GFR (Cockcroft-Gault) 39.0 35.8 BUN/Creatinine Ratio 18 (6-20) Glucose Level 85 mg/dL (70-99) 121 mg/dL (70-99) H Calcium Level 9.3 mg/dL (8.5-10.1) 9.0 mg/dL (8.5-10.1) Magnesium Level 2.0 mg/dL (1.8-2.4) Total Bilirubin 1.0 mg/dL (0.2-1.0) Aspartate Amino Transferase (AST) 13 U/L (15-37) L Alanine Aminotransferase (ALT) 12 U/L (14-59) L Alkaline Phosphatase 80 U/L (46-116) Troponin I Quantitative < 0.017 ng/mL (0.000-0.055) LU-Eow-I-Type Natriuretic Peptide 6516 pg/mL (0-449) H Total Protein 7.0 g/dL (6.4-8.2) Albumin 3.6 g/dL (3.4-5.0) Albumin/Globulin Ratio 1.1 (1.0-1.7) Thyroid Stimulating Hormone (TSH) 1.416 uIU/mL (0.358-3.74) Laboratory Tests 01/15/19 14:58 01/16/19 04:00 Laboratory Tests 01/15/19 14:58 01/16/19 04:00 ASSESSMENT/PLAN ASSESSMENT/PLAN 1. AFIB with RVR, new onset. Rate controlled 2. Malignant hypertension 3. Hyperlipidemia 5. CKD Recommendations Echo to assess LV systolic function TSH, lipids Add metoprolol for rate control Start OAC with Eliquis Consider CV Supportive care RICARDO NUNEZ MD 01/16/19 9935: CARDIAC CONSULT ASSESSMENT/PLAN ASSESSMENT/PLAN Pt. seen and examined. Agree with above PAYROLL PROCESSOR note with following comments: New onset uncontrolled HTN and incidental afib. patient wants conservative mgmt. She does NOT have Part D medicare insurance. Therefore, we will provide samples of eliquis for 1 month, start metoprolol and amiodarone and determine final plans on an outpt basis. She will consider AMELIA/CVN after trial of medical therapy. Thanks. Ok to DC tmrw if BP/HR controlled on metoprolol, amio and eliquis for afib. EVA HERNANDEZ APRN Jan 16, 2019 09:40 RICARDO NUNEZ MD Jan 16, 2019 18:53
[2019-01-16 10:22] VITALS: BP 130/67
[2019-01-16 11:21] LABS: CHOLESTEROL/HDL RATIO 3.3
[2019-01-16] MEDS: APIXABAN 5 MG TABLET. PO SCH ×2 (12:15→20:46)
[2019-01-16] MEDS: METOPROLOL TART IMMED RELEASE 25 MG TABLET. PO SCH ×2 (12:16→20:45)
--- NOTE | 2019-01-16 12:16 | NUR ---
SS following for discharge planning. SS reviewed pt chart. Pt is from home with spouse and is currently on room air. SS spoke with pt's RN and was notified that pt is ambulating well. SS will continue to follow for discharge planning.
--- NOTE | 2019-01-16 13:12 | CARD ---
MR#: [id number] Date of Study: 01/16/2019 Ordering Physician: VIPIN VAN, Referring Physician: Hui MCELROY: Sejal Villalobos APPROVED REPORT EXAM: Two-dimensional and M-mode echocardiogram with Doppler and color Doppler. Other Information Quality : AverageHR: 97bpm INDICATION Atrial Fibrillation 2D DIMENSIONS RVDd3.0 (2.9-3.5cm)Left Atrium(2D)4.8 (1.6-4.0cm) IVSd1.3 (0.7-1.1cm)Aortic Root(2D)2.6 (2.0-3.7cm) LVDd4.6 (3.9-5.9cm)LVOT Diameter2.0 (1.8-2.4cm) PWd1.1 (0.7-1.1cm)LVDs3.4 (2.5-4.0cm) FS (%) 25.2 %SV48.2 ml LVEF(%)49.9 (>50%) Aortic Valve AoV Peak Jose E.105.6cm/sAoV VTI22.2cm AO Peak GR.4.5mmHgLVOT Peak Jose E.48.7cm/s LVOT VTI 11.69cmAO Mean GR.3mmHg ENRIKE (VMAX)1.16ej5BEQ (VTI)1.73cm2 Mitral Valve MV E Ronvcveg21.6cm/sMV DECEL [id number] MV [id number] (PHT)4.61cm2 TDI E/Lateral E'12.2E/Medial E'16.1 Pulmonary Valve PV Peak Pdvibaau02.6cm/sPV Peak Grad.2mmHg Tricuspid Valve TR P. Xowmyker159ag/sTR Peak Gr.24mmHg [id number] LEFT VENTRICLE The left ventricle is normal size. There is borderline to mild concentric left ventricular hypertroph y. The left ventricular systolic function is normal. The Ejection Fraction is 60-65%. There is normal LV segmental wall motion. Could not determine diastolic function due to A-Fib. RIGHT VENTRICLE The right ventricle is normal size. There is normal right ventricular wall thickness. The right ventr icular systolic function is normal. ATRIA The left atrium is mildly to moderately dilated. The right atrium size is normal. The interatrial sep connor is intact with no evidence for an atrial septal defect or patent foramen ovale as noted on 2-D or Doppler imaging. AORTIC VALVE The aortic valve is calcified but opens well. Doppler and Color Flow revealed no significant aortic r egurgitation. There is no significant aortic valvular stenosis. MITRAL VALVE The mitral valve is thickened but opens well. Mitral annular calcification is mild. There is no evide nce of mitral valve prolapse. There is no mitral valve stenosis. Doppler and Color-flow revealed mild mitral regurgitation. TRICUSPID VALVE The tricuspid valve is not well visualized. Doppler and Color Flow revealed mild tricuspid regurgitat ion. There is no tricuspid valve stenosis. PULMONIC VALVE The pulmonic valve is not well visualized. Doppler and Color Flow revealed no pulmonic valvular regur gitation. GREAT VESSELS The aortic root is normal in size. The ascending aorta is normal in size. The IVC is normal in size a nd collapses >50% with inspiration. PERICARDIAL EFFUSION There is no pleural effusion. There is no evidence of significant pericardial effusion. Critical Notification Critical Value: No <Conclusion> The left ventricular systolic function is normal. The Ejection Fraction is 60-65%. There is normal LV segmental wall motion. Mild mitral regurgitation. Mild tricuspid regurgitation. There is no evidence of significant pericardial effusion. Signed by : Trent Wilson, Electronically Approved : 01/16/2019 13:12:30
--- NOTE | 2019-01-16 14:08 | PDOC2 ---
CONSULT Date of Consult Date of Consult DATE: 01/16/19 TIME: 13:58 Reason for Consult Reason for Consult: Renal failure Identification/Chief Complaint Chief Complaint No complaints Source Source: Chart review, Patient History of Present Illness Reason for Visit: Pt is 83 yo female who presented secondary to ER with elevated blood pressure. Patient was at routine check up at my office - Blood pressure was noted to be significantly elevated with SBP in the 200 range. She was asymptomatic . Was sent to the ED for further evaluation and treatment. Patient denies any complaints including chest pain, palpitations, diaphoresis, SOA, or LE edema. No prior history of CAD. Was noted in AFIB with RVR upon arrival. Cardizem bolus was administered. Rate has been mostly controlled. Cardizem gtt was not initiated. No Hx of NSAID use. BP in past 120-136 systolic with normal DBP, only on Lisinopril at home Past Medical History Cardiovascular: HTN, Hyperlipidemia GI: GERD Musculoskeletal: Osteoarthritis Infectious disease: No pertinent hx Renal/: Chronic renal insuff Past Surgical History Past Surgical History: Hysterectomy Family History Family History: Heart Disease, Hypertension Social History No ALCOHOL: none Drugs: None Lives: with Family Current Problem List Problem List Problems Medical Problems: (1) Atrial fibrillation with rapid ventricular response Status: Acute (2) Hypertensive urgency Status: Acute Current Medications Current Medications Current Medications Diltiazem HCl (Cardizem Iv Push) 20 mg 1X ONCE IVP Last administered on 01/15/19at 15:32; Start 01/15/19 at 15:30; Stop 01/15/19 at 15:31; Status DC Ondansetron HCl (Zofran) 4 mg PRN Q8HRS PRN IV NAUSEA/VOMITING; Start 01/15/19 at 15:45; Stop 01/16/19 at 15:44 Morphine Sulfate (Morphine Sulfate) 2 mg PRN Q2HR PRN IV PAIN; Start 01/15/19 at 15:45; Stop 01/16/19 at 15:44 Sodium Chloride (Normal Saline Flush) 3 ml QSHIFT PRN IV AFTER MEDS AND BLOOD DRAWS; Start 01/15/19 at 16:30 Ondansetron HCl (Zofran) 4 mg PRN Q4HRS PRN IV NAUSEA/VOMITING; Start 01/15/19 at 16:30 Zolpidem Tartrate (Ambien) 5 mg PRN QHS PRN PO INSOMNIA; Start 01/15/19 at 16:30 Acetaminophen (Tylenol) 650 mg PRN Q4HRS PRN PO TEMP OVER 100.4F OR MILD PAIN; Start 01/15/19 at 16:30 Al Hydroxide/Mg Hydroxide (Mylanta Plus Xs) 30 ml PRN DAILY PRN PO HEARTBURN / GAS; Start 01/15/19 at 16:30 Clonidine HCl (Catapres) 0.1 mg PRN Q6HRS PRN PO SBP>160 OR DBP>90 Last administered on 01/15/19at 23:21; Start 01/15/19 at 16:30 Docusate Sodium (Colace) 100 mg PRN BID PRN PO CONSTIPATION; Start 01/15/19 at 16:30 Albuterol Sulfate (Ventolin Neb Soln) 2.5 mg PRN Q4HRS PRN NEB SHORTNESS OF BREATH; Start 01/15/19 at 16:30 Guaifenesin (Robitussin) 200 mg PRN Q4HRS PRN PO COUGH; Start 01/15/19 at 16:30 Lorazepam (Ativan) 0.5 mg PRN Q4HRS PRN PO ANXIETY / AGITATION; Start 01/15/19 at 16:30 Enoxaparin Sodium (Lovenox 40mg Syringe) 40 mg DAILY SQ ; Start 01/16/19 at 09:00; Stop 01/16/19 at 10:46; Status DC Hydralazine HCl (Apresoline Inj) 20 mg PRN Q4HRS PRN IVP ELEVATED BP, SEE COMMENTS Last administered on 01/16/19at 03:16; Start 01/15/19 at 18:30 Diltiazem HCl 125 mg/Dextrose 125 ml @ 5 mls/hr CONT PRN IV SEE I/O RECORD; Start 01/15/19 at 18:30 Lisinopril (Prinivil) 20 mg BID PO Last administered on 01/16/19at 09:25; Start 01/15/19 at 21:00 Fluconazole (Diflucan) 200 mg DAILY PO ; Start 01/16/19 at 09:00 Apixaban (Eliquis) 5 mg BID PO Last administered on 01/16/19at 12:15; Start 01/16/19 at 11:00 Metoprolol Tartrate (Lopressor) 25 mg BID PO Last administered on 01/16/19at 12:16; Start 01/16/19 at 11:00 Active Scripts Active Reported Fluconazole 200 Mg Tablet 1 Tab PO DAILY Lisinopril 20 Mg Tablet 1 Tab PO BID Allergies Allergies: Coded Allergies: Penicillins (Verified Allergy, Intermediate, 01/16/19) allopurinol (Verified Allergy, Intermediate, 01/16/19) cephalexin (Verified Allergy, Intermediate, rash, 01/15/19) doxycycline (Verified Allergy, Intermediate, 01/16/19) naproxen (Verified Allergy, Intermediate, rash/hives, 01/15/19) azithromycin (Verified Allergy, Mild, "made me sick", 01/16/19) omeprazole (Verified Allergy, Mild, 01/16/19) ROS Review of System Per HPI Physical Exam Physical Exam General: Alert, Oriented X3, Cooperative, No acute distress Neck Supple HEENT: Atraumatic, OM moist Lungs: Clear to auscultation Heart: Normal S1, Normal S2, No murmurs, Other (IRR; AFIB rate controlled ) Abdomen: Soft, No tenderness Extremities: No edema, Neuro: Normal speech, Sensation intact Psych/Mental Status: Mental status NL, Mood NL No adams, no cva or sp tenderness Skin No rash Vital Signs Vital Signs Date Time Temp Pulse Resp B/P (MAP) Pulse Ox O2 Delivery O2 Flow Rate FiO2 01/16/19 12:16 89 130/67 01/16/19 10:22 97.6 16 98 Room Air 97.6 Assessment & Plan CKD- suspect 2/2 HTNsive Nephrosclerosis Sent to ER from our office, Cr mildly elevated then her baseline (1.1-1.2) - stable since Late Nov 2018 , Had ALICIA in 2018 with Cr 2.1 E-Lytes and acid base stable,UA unremarkable Supportive care, Avoid nephrotoxins, I/O , Monitor AFIB with RVR, new onset. Rate controlled Per Cardiology metoprolol for rate control, OAC with Eliquis Echo to assess LV systolic function Malignant hypertension- BP at goal at past visits to our office only on lisnopril 20 mg PO bid at home Yesterday BP were in 200/110 , pt was asymptomatic - sent to ER cardiology managing, BP improved Discussed with Pt,family and RN Labs Labs Laboratory Tests Test 01/15/19 14:15 01/15/19 14:58 01/16/19 04:00 Urine Collection Type Void Urine Color Yellow Urine Clarity Clear Urine pH 6.5 Urine Specific Klemme 1.015 Urine Protein Negative mg/dL (NEG-TRACE) Urine Glucose (UA) Negative mg/dL (NEG) Urine Ketones (Stick) Negative mg/dL (NEG) Urine Blood Negative (NEG) Urine Nitrite Negative (NEG) Urine Bilirubin Negative (NEG) Urine Urobilinogen Dipstick 1.0 mg/dL (0.2 mg/dL) Urine Leukocyte Esterase Trace (NEG) Urine RBC Occ /HPF (0-2) Urine WBC 1-4 /HPF (0-4) Urine Squamous Epithelial Cells Many /LPF Urine Bacteria Many /HPF (0-FEW) White Blood Count 13.6 x10^3/uL (4.0-11.0) 12.8 x10^3/uL (4.0-11.0) Red Blood Count 5.33 x10^6/uL (3.50-5.40) 5.08 x10^6/uL (3.50-5.40) Hemoglobin 15.7 g/dL (12.0-15.5) 14.9 g/dL (12.0-15.5) Hematocrit 47.5 % (36.0-47.0) 45.1 % (36.0-47.0) Mean Corpuscular Volume 89 fL (79-100) 89 fL (79-100) Mean Corpuscular Hemoglobin 30 pg (25-35) 29 pg (25-35) Mean Corpuscular Hemoglobin Concent 33 g/dL (31-37) 33 g/dL (31-37) Red Cell Distribution Width 14.5 % (11.5-14.5) 14.6 % (11.5-14.5) Platelet Count 243 x10^3/uL (140-400) 226 x10^3/uL (140-400) Neutrophils (%) (Auto) 79 % (31-73) 78 % (31-73) Lymphocytes (%) (Auto) 7 % (24-48) 11 % (24-48) Monocytes (%) (Auto) 13 % (0-9) 9 % (0-9) Eosinophils (%) (Auto) 1 % (0-3) 2 % (0-3) Basophils (%) (Auto) 1 % (0-3) 0 % (0-3) Neutrophils # (Auto) 10.7 x10^3/uL (1.8-7.7) 10.0 x10^3/uL (1.8-7.7) Lymphocytes # (Auto) 1.0 x10^3/uL (1.0-4.8) 1.4 x10^3/uL (1.0-4.8) Monocytes # (Auto) 1.7 x10^3/uL (0.0-1.1) 1.2 x10^3/uL (0.0-1.1) Eosinophils # (Auto) 0.1 x10^3/uL (0.0-0.7) 0.2 x10^3/uL (0.0-0.7) Basophils # (Auto) 0.1 x10^3/uL (0.0-0.2) 0.0 x10^3/uL (0.0-0.2) Sodium Level 137 mmol/L (136-145) 137 mmol/L (136-145) Potassium Level 4.5 mmol/L (3.5-5.1) 4.4 mmol/L (3.5-5.1) Chloride Level 103 mmol/L (98-107) 103 mmol/L (98-107) Carbon Dioxide Level 29 mmol/L (21-32) 24 mmol/L (21-32) Anion Gap 5 (6-14) 10 (6-14) Blood Urea Nitrogen 23 mg/dL (7-20) 25 mg/dL (7-20) Creatinine 1.3 mg/dL (0.6-1.0) 1.4 mg/dL (0.6-1.0) Estimated GFR (Cockcroft-Gault) 39.0 35.8 BUN/Creatinine Ratio 18 (6-20) Glucose Level 85 mg/dL (70-99) 121 mg/dL (70-99) Calcium Level 9.3 mg/dL (8.5-10.1) 9.0 mg/dL (8.5-10.1) Magnesium Level 2.0 mg/dL (1.8-2.4) Total Bilirubin 1.0 mg/dL (0.2-1.0) Aspartate Amino Transf (AST/SGOT) 13 U/L (15-37) Alanine Aminotransferase (ALT/SGPT) 12 U/L (14-59) Alkaline Phosphatase 80 U/L (46-116) Troponin I Quantitative < 0.017 ng/mL (0.000-0.055) JZ-[id number]-Type Natriuretic Peptide 6516 pg/mL (0-449) Total Protein 7.0 g/dL (6.4-8.2) Albumin 3.6 g/dL (3.4-5.0) Albumin/Globulin Ratio 1.1 (1.0-1.7) Thyroid Stimulating Hormone (TSH) 1.416 uIU/mL (0.358-3.74) Triglycerides Level 58 mg/dL (0-150) Cholesterol Level 142 mg/dL (0-200) LDL Cholesterol, Calculated 87 mg/dL (0-100) VLDL Cholesterol, Calculated 12 mg/dL (0-40) Non-HDL Cholesterol Calculated 99 mg/dL (0-129) HDL Cholesterol 43 mg/dL (40-60) Cholesterol/HDL Ratio 3.3 Laboratory Tests Test 01/15/19 14:15 01/15/19 14:58 01/16/19 04:00 Urine Collection Type Void Urine Color Yellow Urine Clarity Clear Urine pH 6.5 Urine Specific Klemme 1.015 Urine Protein Negative mg/dL (NEG-TRACE) Urine Glucose (UA) Negative mg/dL (NEG) Urine Ketones (Stick) Negative mg/dL (NEG) Urine Blood Negative (NEG) Urine Nitrite Negative (NEG) Urine Bilirubin Negative (NEG) Urine Urobilinogen Dipstick 1.0 mg/dL (0.2 mg/dL) Urine Leukocyte Esterase Trace (NEG) Urine RBC Occ /HPF (0-2) Urine WBC 1-4 /HPF (0-4) Urine Squamous Epithelial Cells Many /LPF Urine Bacteria Many /HPF (0-FEW) White Blood Count 13.6 x10^3/uL (4.0-11.0) 12.8 x10^3/uL (4.0-11.0) Red Blood Count 5.33 x10^6/uL (3.50-5.40) 5.08 x10^6/uL (3.50-5.40) Hemoglobin 15.7 g/dL (12.0-15.5) 14.9 g/dL (12.0-15.5) Hematocrit 47.5 % (36.0-47.0) 45.1 % (36.0-47.0) Mean Corpuscular Volume 89 fL (79-100) 89 fL (79-100) Mean Corpuscular Hemoglobin 30 pg (25-35) 29 pg (25-35) Mean Corpuscular Hemoglobin Concent 33 g/dL (31-37) 33 g/dL (31-37) Red Cell Distribution Width 14.5 % (11.5-14.5) 14.6 % (11.5-14.5) Platelet Count 243 x10^3/uL (140-400) 226 x10^3/uL (140-400) Neutrophils (%) (Auto) 79 % (31-73) 78 % (31-73) Lymphocytes (%) (Auto) 7 % (24-48) 11 % (24-48) Monocytes (%) (Auto) 13 % (0-9) 9 % (0-9) Eosinophils (%) (Auto) 1 % (0-3) 2 % (0-3) Basophils (%) (Auto) 1 % (0-3) 0 % (0-3) Neutrophils # (Auto) 10.7 x10^3/uL (1.8-7.7) 10.0 x10^3/uL (1.8-7.7) Lymphocytes # (Auto) 1.0 x10^3/uL (1.0-4.8) 1.4 x10^3/uL (1.0-4.8) Monocytes # (Auto) 1.7 x10^3/uL (0.0-1.1) 1.2 x10^3/uL (0.0-1.1) Eosinophils # (Auto) 0.1 x10^3/uL (0.0-0.7) 0.2 x10^3/uL (0.0-0.7) Basophils # (Auto) 0.1 x10^3/uL (0.0-0.2) 0.0 x10^3/uL (0.0-0.2) Sodium Level 137 mmol/L (136-145) 137 mmol/L (136-145) Potassium Level 4.5 mmol/L (3.5-5.1) 4.4 mmol/L (3.5-5.1) Chloride Level 103 mmol/L (98-107) 103 mmol/L (98-107) Carbon Dioxide Level 29 mmol/L (21-32) 24 mmol/L (21-32) Anion Gap 5 (6-14) 10 (6-14) Blood Urea Nitrogen 23 mg/dL (7-20) 25 mg/dL (7-20) Creatinine 1.3 mg/dL (0.6-1.0) 1.4 mg/dL (0.6-1.0) Estimated GFR (Cockcroft-Gault) 39.0 35.8 BUN/Creatinine Ratio 18 (6-20) Glucose Level 85 mg/dL (70-99) 121 mg/dL (70-99) Calcium Level 9.3 mg/dL (8.5-10.1) 9.0 mg/dL (8.5-10.1) Magnesium Level 2.0 mg/dL (1.8-2.4) Total Bilirubin 1.0 mg/dL (0.2-1.0) Aspartate Amino Transf (AST/SGOT) 13 U/L (15-37) Alanine Aminotransferase (ALT/SGPT) 12 U/L (14-59) Alkaline Phosphatase 80 U/L (46-116) Troponin I Quantitative < 0.017 ng/mL (0.000-0.055) GA-Gmi-V-Type Natriuretic Peptide 6516 pg/mL (0-449) Total Protein 7.0 g/dL (6.4-8.2) Albumin 3.6 g/dL (3.4-5.0) Albumin/Globulin Ratio 1.1 (1.0-1.7) Thyroid Stimulating Hormone (TSH) 1.416 uIU/mL (0.358-3.74) Triglycerides Level 58 mg/dL (0-150) Cholesterol Level 142 mg/dL (0-200) LDL Cholesterol, Calculated 87 mg/dL (0-100) VLDL Cholesterol, Calculated 12 mg/dL (0-40) Non-HDL Cholesterol Calculated 99 mg/dL (0-129) HDL Cholesterol 43 mg/dL (40-60) Cholesterol/HDL Ratio 3.3 Review All relevant outside records, renal labs, imaging studies, telemetry/EKG's were reviewed. OFELIA FLANAGAN MD Jan 16, 2019 14:08
[2019-01-16 15:00] VITALS: BP 131/66
[2019-01-16 19:40] VITALS: BP 142/68
[2019-01-16 23:00] VITALS: BP 154/84
[2019-01-17] VITALS (7 sets, daily range): BP systolic 132–187; BP diastolic 57–106
--- NOTE | 2019-01-17 09:07 | PDOC ---
PROGRESS NOTES History of Present Illness History of Present Illness VTE Prophylaxis Ordered VTE Prophylaxis Devices: Yes VTE Pharmacological Prophylaxi: Yes Assessment/Plan Assessment/Plan impression 1. hypertensive urgency, SUBOPTIMAL CONTROL 2. new onset a- fib rvr 3. morbid obesity 4. HYPERLIPIDEMIA plan admit iv cardizem cardiology consult tsh dvt prophylaxis echo The Ejection Fraction is 60-65%. There is normal LV segmental wall motion. Mild mitral regurgitation. Mild tricuspid regurgitation. ELIQUIS CATAPRESS TTS-2 PATCH ADD ALDACTONE 25 MG PO DAILY RENAL DUPLEX DOPPLER STUDY Nephrology consult 38 min pt exam, chart review, > 50% of time spent with exam, chart review, pt care coordination Vitals Vitals Vital Signs Date Time Temp Pulse Resp B/P (MAP) Pulse Ox O2 Delivery O2 Flow Rate FiO2 01/17/19 05:20 98.0 71 17 161/78 (105) 97 Room Air 98.0 Physical Exam General: Alert, Oriented X3, Cooperative, No acute distress Heart: Other (IRR) Abdomen: Normal bowel sounds, Soft, No tenderness Extremities: No cyanosis, No edema, Normal pulses Skin: No significant lesion Labs LABS APPROVED REPORT EXAM: Two-dimensional and M-mode echocardiogram with Doppler and color Doppler. Other Information Quality : Average HR: 97bpm INDICATION Atrial Fibrillation 2D DIMENSIONS RVDd 3.0 (2.9-3.5cm) Left Atrium(2D) 4.8 (1.6-4.0cm) IVSd 1.3 (0.7-1.1cm) Aortic Root(2D) 2.6 (2.0-3.7cm) LVDd 4.6 (3.9-5.9cm) LVOT Diameter 2.0 (1.8-2.4cm) PWd 1.1 (0.7-1.1cm) LVDs 3.4 (2.5-4.0cm) FS (%) 25.2 % SV 48.2 ml LVEF(%) 49.9 (>50%) Aortic Valve AoV Peak Jose E. 105.6cm/s AoV VTI 22.2cm AO Peak GR. 4.5mmHg LVOT Peak Jose E. 48.7cm/s LVOT VTI 11.69cm AO Mean GR. 3mmHg ENRIKE (VMAX) 1.16cm2 ENRIKE (VTI) 1.73cm2 Mitral Valve MV E Velocity 91.6cm/s MV DECEL TIME 165ms MV PHT 48ms MVA (PHT) 4.61cm2 TDI E/Lateral E' 12.2 E/Medial E' 16.1 Pulmonary Valve PV Peak Velocity 67.6cm/s PV Peak Grad. 2mmHg Tricuspid Valve TR P. Velocity 243cm/s TR Peak Gr. 24mmHg RVSP 27mmHg LEFT VENTRICLE The left ventricle is normal size. There is borderline to mild concentric left ventricular hypertrophy. The left ventricular systolic function is normal. The Ejection Fraction is 60-65%. There is normal LV segmental wall motion. Could not determine diastolic function due to A-Fib. RIGHT VENTRICLE The right ventricle is normal size. There is normal right ventricular wall thickness. The right ventricular systolic function is normal. ATRIA The left atrium is mildly to moderately dilated. The right atrium size is normal. The interatrial septum is intact with no evidence for an atrial septal defect or patent foramen ovale as noted on 2-D or Doppler imaging. AORTIC VALVE The aortic valve is calcified but opens well. Doppler and Color Flow revealed no significant aortic regurgitation. There is no significant aortic valvular stenosis. MITRAL VALVE The mitral valve is thickened but opens well. Mitral annular calcification is mild. There is no evidence of mitral valve prolapse. There is no mitral valve stenosis. Doppler and Color-flow revealed mild mitral regurgitation. TRICUSPID VALVE The tricuspid valve is not well visualized. Doppler and Color Flow revealed mild tricuspid regurgitation. There is no tricuspid valve stenosis. PULMONIC VALVE The pulmonic valve is not well visualized. Doppler and Color Flow revealed no pulmonic valvular regurgitation. GREAT VESSELS The aortic root is normal in size. The ascending aorta is normal in size. The IVC is normal in size and collapses >50% with inspiration. PERICARDIAL EFFUSION There is no pleural effusion. There is no evidence of significant pericardial effusion. Critical Notification Critical Value: No <Conclusion> The left ventricular systolic function is normal. The Ejection Fraction is 60-65%. There is normal LV segmental wall motion. Mild mitral regurgitation. Mild tricuspid regurgitation. There is no evidence of significant pericardial effusion. Signed by : Mary Alice Wilson, Electronically Approved : 01/16/2019 13:12:30 DICTATED and SIGNED BY: MARY ALICE WILSON MD DATE: 01/16/19 1151 Assessment and Plan Assessmemt and Plan Problems Medical Problems: (1) Atrial fibrillation with rapid ventricular response Status: Acute (2) Hypertensive urgency Status: Acute Comment Review of Relevant I have reviewed the following items salvador (where applicable) has been applied. Labs Laboratory Tests Test 01/15/19 14:15 01/15/19 14:58 01/16/19 04:00 Urine Collection Type Void Urine Color Yellow Urine Clarity Clear Urine pH 6.5 Urine Specific Lena 1.015 Urine Protein Negative mg/dL (NEG-TRACE) Urine Glucose (UA) Negative mg/dL (NEG) Urine Ketones (Stick) Negative mg/dL (NEG) Urine Blood Negative (NEG) Urine Nitrite Negative (NEG) Urine Bilirubin Negative (NEG) Urine Urobilinogen Dipstick 1.0 mg/dL (0.2 mg/dL) Urine Leukocyte Esterase Trace (NEG) Urine RBC Occ /HPF (0-2) Urine WBC 1-4 /HPF (0-4) Urine Squamous Epithelial Cells Many /LPF Urine Bacteria Many /HPF (0-FEW) White Blood Count 13.6 x10^3/uL (4.0-11.0) 12.8 x10^3/uL (4.0-11.0) Red Blood Count 5.33 x10^6/uL (3.50-5.40) 5.08 x10^6/uL (3.50-5.40) Hemoglobin 15.7 g/dL (12.0-15.5) 14.9 g/dL (12.0-15.5) Hematocrit 47.5 % (36.0-47.0) 45.1 % (36.0-47.0) Mean Corpuscular Volume 89 fL (79-100) 89 fL (79-100) Mean Corpuscular Hemoglobin 30 pg (25-35) 29 pg (25-35) Mean Corpuscular Hemoglobin Concent 33 g/dL (31-37) 33 g/dL (31-37) Red Cell Distribution Width 14.5 % (11.5-14.5) 14.6 % (11.5-14.5) Platelet Count 243 x10^3/uL (140-400) 226 x10^3/uL (140-400) Neutrophils (%) (Auto) 79 % (31-73) 78 % (31-73) Lymphocytes (%) (Auto) 7 % (24-48) 11 % (24-48) Monocytes (%) (Auto) 13 % (0-9) 9 % (0-9) Eosinophils (%) (Auto) 1 % (0-3) 2 % (0-3) Basophils (%) (Auto) 1 % (0-3) 0 % (0-3) Neutrophils # (Auto) 10.7 x10^3/uL (1.8-7.7) 10.0 x10^3/uL (1.8-7.7) Lymphocytes # (Auto) 1.0 x10^3/uL (1.0-4.8) 1.4 x10^3/uL (1.0-4.8) Monocytes # (Auto) 1.7 x10^3/uL (0.0-1.1) 1.2 x10^3/uL (0.0-1.1) Eosinophils # (Auto) 0.1 x10^3/uL (0.0-0.7) 0.2 x10^3/uL (0.0-0.7) Basophils # (Auto) 0.1 x10^3/uL (0.0-0.2) 0.0 x10^3/uL (0.0-0.2) Sodium Level 137 mmol/L (136-145) 137 mmol/L (136-145) Potassium Level 4.5 mmol/L (3.5-5.1) 4.4 mmol/L (3.5-5.1) Chloride Level 103 mmol/L (98-107) 103 mmol/L (98-107) Carbon Dioxide Level 29 mmol/L (21-32) 24 mmol/L (21-32) Anion Gap 5 (6-14) 10 (6-14) Blood Urea Nitrogen 23 mg/dL (7-20) 25 mg/dL (7-20) Creatinine 1.3 mg/dL (0.6-1.0) 1.4 mg/dL (0.6-1.0) Estimated GFR (Cockcroft-Gault) 39.0 35.8 BUN/Creatinine Ratio 18 (6-20) Glucose Level 85 mg/dL (70-99) 121 mg/dL (70-99) Calcium Level 9.3 mg/dL (8.5-10.1) 9.0 mg/dL (8.5-10.1) Magnesium Level 2.0 mg/dL (1.8-2.4) Total Bilirubin 1.0 mg/dL (0.2-1.0) Aspartate Amino Transf (AST/SGOT) 13 U/L (15-37) Alanine Aminotransferase (ALT/SGPT) 12 U/L (14-59) Alkaline Phosphatase 80 U/L (46-116) Troponin I Quantitative < 0.017 ng/mL (0.000-0.055) GK-Jcn-W-Type Natriuretic Peptide 6516 pg/mL (0-449) Total Protein 7.0 g/dL (6.4-8.2) Albumin 3.6 g/dL (3.4-5.0) Albumin/Globulin Ratio 1.1 (1.0-1.7) Thyroid Stimulating Hormone (TSH) 1.416 uIU/mL (0.358-3.74) Triglycerides Level 58 mg/dL (0-150) Cholesterol Level 142 mg/dL (0-200) LDL Cholesterol, Calculated 87 mg/dL (0-100) VLDL Cholesterol, Calculated 12 mg/dL (0-40) Non-HDL Cholesterol Calculated 99 mg/dL (0-129) HDL Cholesterol 43 mg/dL (40-60) Cholesterol/HDL Ratio 3.3 Microbiology 01/15/19 Urine Culture - Final, Complete 01/15/19 Urine Culture Result 1 (HERLINDA) - Final, Complete Medications Current Medications Diltiazem HCl (Cardizem Iv Push) 20 mg 1X ONCE IVP Last administered on 01/15/19at 15:32; Start 01/15/19 at 15:30; Stop 01/15/19 at 15:31; Status DC Ondansetron HCl (Zofran) 4 mg PRN Q8HRS PRN IV NAUSEA/VOMITING; Start 01/15/19 at 15:45; Stop 01/16/19 at 15:44; Status DC Morphine Sulfate (Morphine Sulfate) 2 mg PRN Q2HR PRN IV PAIN; Start 01/15/19 at 15:45; Stop 01/16/19 at 15:44; Status DC Sodium Chloride (Normal Saline Flush) 3 ml QSHIFT PRN IV AFTER MEDS AND BLOOD DRAWS; Start 01/15/19 at 16:30 Ondansetron HCl (Zofran) 4 mg PRN Q4HRS PRN IV NAUSEA/VOMITING; Start 01/15/19 at 16:30 Zolpidem Tartrate (Ambien) 5 mg PRN QHS PRN PO INSOMNIA; Start 01/15/19 at 16:30 Acetaminophen (Tylenol) 650 mg PRN Q4HRS PRN PO TEMP OVER 100.4F OR MILD PAIN; Start 01/15/19 at 16:30 Al Hydroxide/Mg Hydroxide (Mylanta Plus Xs) 30 ml PRN DAILY PRN PO HEARTBURN / GAS; Start 01/15/19 at 16:30 Clonidine HCl (Catapres) 0.1 mg PRN Q6HRS PRN PO SBP>160 OR DBP>90 Last administered on 01/15/19at 23:21; Start 01/15/19 at 16:30 Docusate Sodium (Colace) 100 mg PRN BID PRN PO CONSTIPATION; Start 01/15/19 at 16:30 Albuterol Sulfate (Ventolin Neb Soln) 2.5 mg PRN Q4HRS PRN NEB SHORTNESS OF BREATH; Start 01/15/19 at 16:30 Guaifenesin (Robitussin) 200 mg PRN Q4HRS PRN PO COUGH; Start 01/15/19 at 16:30 Lorazepam (Ativan) 0.5 mg PRN Q4HRS PRN PO ANXIETY / AGITATION; Start 01/15/19 at 16:30 Enoxaparin Sodium (Lovenox 40mg Syringe) 40 mg DAILY SQ ; Start 01/16/19 at 09:00; Stop 01/16/19 at 10:46; Status DC Hydralazine HCl (Apresoline Inj) 20 mg PRN Q4HRS PRN IVP ELEVATED BP, SEE COMMENTS Last administered on 01/16/19at 03:16; Start 01/15/19 at 18:30 Diltiazem HCl 125 mg/Dextrose 125 ml @ 5 mls/hr CONT PRN IV SEE I/O RECORD; Start 01/15/19 at 18:30 Lisinopril (Prinivil) 20 mg BID PO Last administered on 01/16/19at 20:46; Start 01/15/19 at 21:00 Fluconazole (Diflucan) 200 mg DAILY PO ; Start 01/16/19 at 09:00 Apixaban (Eliquis) 5 mg BID PO Last administered on 01/16/19at 20:46; Start 01/16/19 at 11:00 Metoprolol Tartrate (Lopressor) 25 mg BID PO Last administered on 01/16/19at 20:45; Start 01/16/19 at 11:00 Active Scripts Active Reported Fluconazole 200 Mg Tablet 1 Tab PO DAILY Lisinopril 20 Mg Tablet 1 Tab PO BID Vitals/I & O Vital Sign - Last 24 Hours 01/16/19 01/16/19 01/16/19 01/16/19 09:25 10:22 12:16 15:00 Temp 97.6 97.9 97.6 97.9 Pulse 88 89 89 68 Resp 16 16 B/P (MAP) 142/68 130/67 (88) 130/67 131/66 (87) Pulse Ox 98 94 O2 Delivery Room Air Room Air 01/16/19 01/16/19 01/16/19 01/16/19 19:35 19:40 20:45 20:46 Temp 98.4 98.4 Pulse 79 70 72 Resp 18 B/P (MAP) 142/68 (92) 131/66 131/66 Pulse Ox 95 O2 Delivery Room Air Room Air 01/16/19 01/17/19 01/17/19 23:00 03:00 05:20 Temp 98.0 98.0 98.0 98.0 Pulse 68 72 71 Resp 18 17 B/P (MAP) 154/84 (107) 161/78 (105) Pulse Ox 94 97 O2 Delivery Room Air Room Air Intake and Output 01/16/19 01/16/19 01/17/19 15:00 23:00 07:00 Intake Total 600 ml 200 ml Balance 600 ml 200 ml VIPIN VAN MD Jan 17, 2019 09:07
[2019-01-17] MEDS: FLUCONAZOLE 100 MG TABLET. PO SCH (09:18)
[2019-01-17] MEDS: LISINOPRIL 20 MG TABLET PO SCH ×2 (09:18→20:58)
[2019-01-17] MEDS: METOPROLOL TART IMMED RELEASE 25 MG TABLET. PO SCH ×2 (09:19→20:57)
[2019-01-17] MEDS: APIXABAN 5 MG TABLET. PO SCH ×2 (09:19→20:58)
--- NOTE | 2019-01-17 11:47 | PDOC ---
PROGRESS NOTES Subjective Subjective Feeling better. Objective Objective Vital Signs Date Time Temp Pulse Resp B/P (MAP) Pulse Ox O2 Delivery O2 Flow Rate FiO2 01/17/19 09:19 77 179/102 01/17/19 07:54 Room Air 01/17/19 07:00 98.3 20 93 98.3 Intake and Output 01/17/19 07:00 Intake Total 800 ml Balance 800 ml Intake Oral 800 ml # Voids 4 Physical Exam Abdomen: Normal bowel sounds, Soft, No tenderness Heart: Other (IRR) Extremities: No edema, Normal pulses General: Alert, Cooperative, No acute distress HEENT: Atraumatic Lungs: Clear to auscultation Neuro: Normal speech Psych/Mental Status: Mental status NL, Mood NL Assessment Assessment 1. AFIB with RVR, new onset. Rate controlled. Continue current medications including eliquis for stroke prophylaxis. 2-D echo showed normal LV systolic function. 2. Malignant hypertension: Better controlled 3. CKD Plan Plan of Care Problems Medical Problems: (1) Atrial fibrillation with rapid ventricular response Status: Acute (2) Hypertensive urgency Status: Acute Comment Review of Relevant I have reviewed the following items salvador (where applicable) has been applied. Labs Microbiology 01/15/19 Urine Culture - Final, Complete 01/15/19 Urine Culture Result 1 (HERLINDA) - Final, Complete Vitals/I & O Vital Sign - Last 24 Hours 01/16/19 01/16/19 01/16/19 01/16/19 12:16 15:00 19:35 19:40 Temp 97.9 98.4 97.9 98.4 Pulse 89 68 79 Resp 16 18 B/P (MAP) 130/67 131/66 (87) 142/68 (92) Pulse Ox 94 95 O2 Delivery Room Air Room Air Room Air 01/16/19 01/16/19 01/16/19 01/17/19 20:45 20:46 23:00 03:00 Temp 98.0 98.0 Pulse 70 72 68 72 Resp 18 B/P (MAP) 131/66 131/66 154/84 (107) Pulse Ox 94 O2 Delivery Room Air 01/17/19 01/17/19 01/17/19 01/17/19 05:20 07:00 07:05 07:54 Temp 98.0 98.3 98.0 98.3 Pulse 71 77 Resp 17 20 B/P (MAP) 161/78 (105) 179/102 (127) 183/106 (131) Pulse Ox 97 93 O2 Delivery Room Air Room Air Room Air 01/17/19 01/17/19 09:18 09:19 Pulse 77 B/P (MAP) 179/102 179/102 Intake and Output 01/16/19 01/16/19 01/17/19 15:00 23:00 07:00 Intake Total 600 ml 200 ml Balance 600 ml 200 ml MARY ALICE BROCK MD Jan 17, 2019 11:47
--- NOTE | 2019-01-17 13:24 | PDOC ---
PROGRESS NOTES Subjective Subjective SEEN IN FOLLOW UP OF CKD3 AND HTN Objective Objective Vital Signs Date Time Temp Pulse Resp B/P (MAP) Pulse Ox O2 Delivery O2 Flow Rate FiO2 01/17/19 11:00 97.6 64 20 163/78 (106) 95 Room Air 97.6 Intake and Output 01/17/19 07:00 Intake Total 800 ml Balance 800 ml Intake Oral 800 ml # Voids 4 Physical Exam Abdomen: Normal bowel sounds, Soft, No tenderness, No hepatosplenomegaly, No masses Heart: Regular rate, Normal S1, Normal S2, No murmurs, Gallops Extremities: No clubbing, No cyanosis, No edema, Normal pulses, No tenderness/swelling General: Alert, Oriented X3, Cooperative, No acute distress Lungs: Clear to auscultation, Normal air movement Psych/Mental Status: Mental status NL, Mood NL Diagnosis HYPERTENSION: Accelerated hypertension RENAL FAILURE: Chronic (CKD stage III) Assessment Assessment Problems Medical Problems: (1) Atrial fibrillation with rapid ventricular response Status: Acute (2) Hypertensive urgency Status: Acute Plan Plan of Care BP IS IMPROVING. RENAL FUNCTION WITHIN RANGE OF HER NORMAL. CONT BP CONTROL. ? HOME SOON Comment Review of Relevant I have reviewed the following items salvador (where applicable) has been applied. Labs Laboratory Tests Test 01/15/19 14:15 01/15/19 14:58 01/16/19 04:00 Urine Collection Type Void Urine Color Yellow Urine Clarity Clear Urine pH 6.5 Urine Specific [place] 1.015 Urine Protein Negative mg/dL (NEG-TRACE) Urine Glucose (UA) Negative mg/dL (NEG) Urine Ketones (Stick) Negative mg/dL (NEG) Urine Blood Negative (NEG) Urine Nitrite Negative (NEG) Urine Bilirubin Negative (NEG) Urine Urobilinogen Dipstick 1.0 mg/dL (0.2 mg/dL) Urine Leukocyte Esterase Trace (NEG) Urine RBC Occ /HPF (0-2) Urine WBC 1-4 /HPF (0-4) Urine Squamous Epithelial Cells Many /LPF Urine Bacteria Many /HPF (0-FEW) White Blood Count 13.6 x10^3/uL (4.0-11.0) 12.8 x10^3/uL (4.0-11.0) Red Blood Count 5.33 x10^6/uL (3.50-5.40) 5.08 x10^6/uL (3.50-5.40) Hemoglobin 15.7 g/dL (12.0-15.5) 14.9 g/dL (12.0-15.5) Hematocrit 47.5 % (36.0-47.0) 45.1 % (36.0-47.0) Mean Corpuscular Volume 89 fL (79-100) 89 fL (79-100) Mean Corpuscular Hemoglobin 30 pg (25-35) 29 pg (25-35) Mean Corpuscular Hemoglobin Concent 33 g/dL (31-37) 33 g/dL (31-37) Red Cell Distribution Width 14.5 % (11.5-14.5) 14.6 % (11.5-14.5) Platelet Count 243 x10^3/uL (140-400) 226 x10^3/uL (140-400) Neutrophils (%) (Auto) 79 % (31-73) 78 % (31-73) Lymphocytes (%) (Auto) 7 % (24-48) 11 % (24-48) Monocytes (%) (Auto) 13 % (0-9) 9 % (0-9) Eosinophils (%) (Auto) 1 % (0-3) 2 % (0-3) Basophils (%) (Auto) 1 % (0-3) 0 % (0-3) Neutrophils # (Auto) 10.7 x10^3/uL (1.8-7.7) 10.0 x10^3/uL (1.8-7.7) Lymphocytes # (Auto) 1.0 x10^3/uL (1.0-4.8) 1.4 x10^3/uL (1.0-4.8) Monocytes # (Auto) 1.7 x10^3/uL (0.0-1.1) 1.2 x10^3/uL (0.0-1.1) Eosinophils # (Auto) 0.1 x10^3/uL (0.0-0.7) 0.2 x10^3/uL (0.0-0.7) Basophils # (Auto) 0.1 x10^3/uL (0.0-0.2) 0.0 x10^3/uL (0.0-0.2) Sodium Level 137 mmol/L (136-145) 137 mmol/L (136-145) Potassium Level 4.5 mmol/L (3.5-5.1) 4.4 mmol/L (3.5-5.1) Chloride Level 103 mmol/L (98-107) 103 mmol/L (98-107) Carbon Dioxide Level 29 mmol/L (21-32) 24 mmol/L (21-32) Anion Gap 5 (6-14) 10 (6-14) Blood Urea Nitrogen 23 mg/dL (7-20) 25 mg/dL (7-20) Creatinine 1.3 mg/dL (0.6-1.0) 1.4 mg/dL (0.6-1.0) Estimated GFR (Cockcroft-Gault) 39.0 35.8 BUN/Creatinine Ratio 18 (6-20) Glucose Level 85 mg/dL (70-99) 121 mg/dL (70-99) Calcium Level 9.3 mg/dL (8.5-10.1) 9.0 mg/dL (8.5-10.1) Magnesium Level 2.0 mg/dL (1.8-2.4) Total Bilirubin 1.0 mg/dL (0.2-1.0) Aspartate Amino Transf (AST/SGOT) 13 U/L (15-37) Alanine Aminotransferase (ALT/SGPT) 12 U/L (14-59) Alkaline Phosphatase 80 U/L (46-116) Troponin I Quantitative < 0.017 ng/mL (0.000-0.055) [id number]-Dan-[id number]-Type Natriuretic Peptide 6516 pg/mL (0-449) Total Protein 7.0 g/dL (6.4-8.2) Albumin 3.6 g/dL (3.4-5.0) Albumin/Globulin Ratio 1.1 (1.0-1.7) Thyroid Stimulating Hormone (TSH) 1.416 uIU/mL (0.358-3.74) Triglycerides Level 58 mg/dL (0-150) Cholesterol Level 142 mg/dL (0-200) LDL Cholesterol, Calculated 87 mg/dL (0-100) VLDL Cholesterol, Calculated 12 mg/dL (0-40) Non-HDL Cholesterol Calculated 99 mg/dL (0-129) HDL Cholesterol 43 mg/dL (40-60) Cholesterol/HDL Ratio 3.3 Microbiology 01/15/19 Urine Culture - Final, Complete 01/15/19 Urine Culture Result 1 (HERLINDA) - Final, Complete Medications Current Medications Diltiazem HCl (Cardizem Iv Push) 20 mg 1X ONCE IVP Last administered on 01/15/19at 15:32; Start 01/15/19 at 15:30; Stop 01/15/19 at 15:31; Status DC Ondansetron HCl (Zofran) 4 mg PRN Q8HRS PRN IV NAUSEA/VOMITING; Start 01/15/19 at 15:45; Stop 01/16/19 at 15:44; Status DC Morphine Sulfate (Morphine Sulfate) 2 mg PRN Q2HR PRN IV PAIN; Start 01/15/19 at 15:45; Stop 01/16/19 at 15:44; Status DC Sodium Chloride (Normal Saline Flush) 3 ml QSHIFT PRN IV AFTER MEDS AND BLOOD DRAWS; Start 01/15/19 at 16:30 Ondansetron HCl (Zofran) 4 mg PRN Q4HRS PRN IV NAUSEA/VOMITING; Start 01/15/19 at 16:30 Zolpidem Tartrate (Ambien) 5 mg PRN QHS PRN PO INSOMNIA; Start 01/15/19 at 16:30 Acetaminophen (Tylenol) 650 mg PRN Q4HRS PRN PO TEMP OVER 100.4F OR MILD PAIN; Start 01/15/19 at 16:30 Al Hydroxide/Mg Hydroxide (Mylanta Plus Xs) 30 ml PRN DAILY PRN PO HEARTBURN / GAS; Start 01/15/19 at 16:30 Clonidine HCl (Catapres) 0.1 mg PRN Q6HRS PRN PO SBP>160 OR DBP>90 Last administered on 01/15/19at 23:21; Start 01/15/19 at 16:30 Docusate Sodium (Colace) 100 mg PRN BID PRN PO CONSTIPATION; Start 01/15/19 at 16:30 Albuterol Sulfate (Ventolin Neb Soln) 2.5 mg PRN Q4HRS PRN NEB SHORTNESS OF BREATH; Start 01/15/19 at 16:30 Guaifenesin (Robitussin) 200 mg PRN Q4HRS PRN PO COUGH; Start 01/15/19 at 16:30 Lorazepam (Ativan) 0.5 mg PRN Q4HRS PRN PO ANXIETY / AGITATION; Start 01/15/19 at 16:30 Enoxaparin Sodium (Lovenox 40mg Syringe) 40 mg DAILY SQ ; Start 01/16/19 at 09:00; Stop 01/16/19 at 10:46; Status DC Hydralazine HCl (Apresoline Inj) 20 mg PRN Q4HRS PRN IVP ELEVATED BP, SEE COMMENTS Last administered on 01/16/19at 03:16; Start 01/15/19 at 18:30 Diltiazem HCl 125 mg/Dextrose 125 ml @ 5 mls/hr CONT PRN IV SEE I/O RECORD; Start 01/15/19 at 18:30 Lisinopril (Prinivil) 20 mg BID PO Last administered on 01/17/19at 09:18; Start 01/15/19 at 21:00 Fluconazole (Diflucan) 200 mg DAILY PO Last administered on 01/17/19at 09:18; Start 01/16/19 at 09:00 Apixaban (Eliquis) 5 mg BID PO Last administered on 01/17/19at 09:19; Start 01/16/19 at 11:00 Metoprolol Tartrate (Lopressor) 25 mg BID PO Last administered on 01/17/19at 09:19; Start 01/16/19 at 11:00 Spironolactone (Aldactone) 25 mg DAILY PO ; Start 01/17/19 at 14:00 Active Scripts Active Reported Fluconazole 200 Mg Tablet 1 Tab PO DAILY Lisinopril 20 Mg Tablet 1 Tab PO BID Vitals/I & O Vital Sign - Last 24 Hours 01/16/19 01/16/19 01/16/19 01/16/19 15:00 19:35 19:40 20:45 Temp 97.9 98.4 97.9 98.4 Pulse 68 79 70 Resp 16 18 B/P (MAP) 131/66 (87) 142/68 (92) 131/66 Pulse Ox 94 95 O2 Delivery Room Air Room Air Room Air 01/16/19 01/16/19 01/17/19 01/17/19 20:46 23:00 03:00 05:20 Temp 98.0 98.0 98.0 98.0 Pulse 72 68 72 71 Resp 18 17 B/P (MAP) 131/66 154/84 (107) 161/78 (105) Pulse Ox 94 97 O2 Delivery Room Air Room Air 01/17/19 01/17/19 01/17/19 01/17/19 07:00 07:05 07:54 09:18 Temp 98.3 98.3 Pulse 77 Resp 20 B/P (MAP) 179/102 (127) 183/106 (131) 179/102 Pulse Ox 93 O2 Delivery Room Air Room Air 01/17/19 01/17/19 09:19 11:00 Temp 97.6 97.6 Pulse 77 64 Resp 20 B/P (MAP) 179/102 163/78 (106) Pulse Ox 95 O2 Delivery Room Air Intake and Output 01/16/19 01/16/19 01/17/19 15:00 23:00 07:00 Intake Total 600 ml 200 ml Balance 600 ml 200 ml LULÚ LEA MD Jan 17, 2019 13:24
[2019-01-17] MEDS: SPIRONOLACTONE 25 MG TABLET PO SCH (14:58)
[2019-01-17] MEDS: DOCUSATE SODIUM 100 MG CAPSULE. PO PRN (14:58)
[2019-01-17] MEDS: hydrALAZINE 20 MG/ML VIAL. IVP PRN (23:10)
[2019-01-18 03:46] VITALS: BP 160/80
[2019-01-18 07:00] VITALS: BP 157/76
[2019-01-18 08:11] LABS: ALBUMIN 2.9 g/dL (3.4-5.0); CALCIUM 8.9 mg/dL (8.5-10.1); CREATININE 1.3 mg/dL (0.6-1.0); PHOSPHORUS 3.7 mg/dL (2.6-4.7); POTASSIUM 4.3 mmol/L (3.5-5.1)
[2019-01-18 11:00] VITALS: BP 154/86
--- NOTE | 2019-01-18 11:07 | PDOC ---
PROGRESS NOTES History of Present Illness History of Present Illness VTE Prophylaxis Ordered VTE Prophylaxis Devices: Yes VTE Pharmacological Prophylaxi: Yes Assessment/Plan Assessment/Plan impression 1. hypertensive urgency, SUBOPTIMAL CONTROL, labile 2. new onset a- fib rvr 3. morbid obesity 4. HYPERLIPIDEMIA 5. mild protein-caloric malnutrition plan admit cvc bed iv cardizem drip, continue cardiology consult tsh dvt prophylaxis echo The Ejection Fraction is 60-65%. There is normal LV segmental wall motion. Mild mitral regurgitation. Mild tricuspid regurgitation. ELIQUIS CATAPRESS TTS-2 PATCH ADD ALDACTONE 25 MG PO DAILY RENAL DUPLEX DOPPLER STUDY pending Nephrology following 41 min pt exam, chart review, > 50% of time spent with exam, chart review, pt care coordination Vitals Vitals Vital Signs Date Time Temp Pulse Resp B/P (MAP) Pulse Ox O2 Delivery O2 Flow Rate FiO2 01/18/19 08:00 Room Air 01/18/19 07:00 97.5 70 18 157/76 (103) 97 97.5 Physical Exam General: Alert, Cooperative, No acute distress Heart: Regular rate, Normal S1, Normal S2, No murmurs, Gallops Abdomen: Normal bowel sounds, Soft, No tenderness, No hepatosplenomegaly, No masses Extremities: No clubbing, No cyanosis, No edema, Normal pulses, No tenderness/swelling Skin: No significant lesion Labs LABS Laboratory Tests Test 01/18/19 06:27 Sodium Level 138 mmol/L (136-145) Potassium Level 4.3 mmol/L (3.5-5.1) Chloride Level 103 mmol/L (98-107) Carbon Dioxide Level 27 mmol/L (21-32) Anion Gap 8 (6-14) Blood Urea Nitrogen 33 mg/dL (7-20) Creatinine 1.3 mg/dL (0.6-1.0) Estimated GFR (Cockcroft-Gault) 39.0 Glucose Level 94 mg/dL (70-99) Calcium Level 8.9 mg/dL (8.5-10.1) Phosphorus Level 3.7 mg/dL (2.6-4.7) Albumin 2.9 g/dL (3.4-5.0) Assessment and Plan Assessmemt and Plan Problems Medical Problems: (1) Atrial fibrillation with rapid ventricular response Status: Acute (2) Hypertensive urgency Status: Acute Comment Review of Relevant I have reviewed the following items salvador (where applicable) has been applied. Labs Laboratory Tests Test 01/18/19 06:27 Sodium Level 138 mmol/L (136-145) Potassium Level 4.3 mmol/L (3.5-5.1) Chloride Level 103 mmol/L (98-107) Carbon Dioxide Level 27 mmol/L (21-32) Anion Gap 8 (6-14) Blood Urea Nitrogen 33 mg/dL (7-20) Creatinine 1.3 mg/dL (0.6-1.0) Estimated GFR (Cockcroft-Gault) 39.0 Glucose Level 94 mg/dL (70-99) Calcium Level 8.9 mg/dL (8.5-10.1) Phosphorus Level 3.7 mg/dL (2.6-4.7) Albumin 2.9 g/dL (3.4-5.0) Laboratory Tests Test 01/18/19 06:27 Sodium Level 138 mmol/L (136-145) Potassium Level 4.3 mmol/L (3.5-5.1) Chloride Level 103 mmol/L (98-107) Carbon Dioxide Level 27 mmol/L (21-32) Anion Gap 8 (6-14) Blood Urea Nitrogen 33 mg/dL (7-20) Creatinine 1.3 mg/dL (0.6-1.0) Estimated GFR (Cockcroft-Gault) 39.0 Glucose Level 94 mg/dL (70-99) Calcium Level 8.9 mg/dL (8.5-10.1) Phosphorus Level 3.7 mg/dL (2.6-4.7) Albumin 2.9 g/dL (3.4-5.0) Microbiology 01/15/19 Urine Culture - Final, Complete 01/15/19 Urine Culture Result 1 (HERLINDA) - Final, Complete Medications Current Medications Diltiazem HCl (Cardizem Iv Push) 20 mg 1X ONCE IVP Last administered on 01/15/19at 15:32; Start 01/15/19 at 15:30; Stop 01/15/19 at 15:31; Status DC Ondansetron HCl (Zofran) 4 mg PRN Q8HRS PRN IV NAUSEA/VOMITING; Start 01/15/19 at 15:45; Stop 01/16/19 at 15:44; Status DC Morphine Sulfate (Morphine Sulfate) 2 mg PRN Q2HR PRN IV PAIN; Start 01/15/19 at 15:45; Stop 01/16/19 at 15:44; Status DC Sodium Chloride (Normal Saline Flush) 3 ml QSHIFT PRN IV AFTER MEDS AND BLOOD DRAWS; Start 01/15/19 at 16:30 Ondansetron HCl (Zofran) 4 mg PRN Q4HRS PRN IV NAUSEA/VOMITING; Start 01/15/19 at 16:30 Zolpidem Tartrate (Ambien) 5 mg PRN QHS PRN PO INSOMNIA; Start 01/15/19 at 16:30 Acetaminophen (Tylenol) 650 mg PRN Q4HRS PRN PO TEMP OVER 100.4F OR MILD PAIN; Start 01/15/19 at 16:30 Al Hydroxide/Mg Hydroxide (Mylanta Plus Xs) 30 ml PRN DAILY PRN PO HEARTBURN / GAS; Start 01/15/19 at 16:30 Clonidine HCl (Catapres) 0.1 mg PRN Q6HRS PRN PO SBP>160 OR DBP>90 Last administered on 01/15/19at 23:21; Start 01/15/19 at 16:30 Docusate Sodium (Colace) 100 mg PRN BID PRN PO CONSTIPATION Last administered on 01/17/19at 14:58; Start 01/15/19 at 16:30 Albuterol Sulfate (Ventolin Neb Soln) 2.5 mg PRN Q4HRS PRN NEB SHORTNESS OF BREATH; Start 01/15/19 at 16:30 Guaifenesin (Robitussin) 200 mg PRN Q4HRS PRN PO COUGH; Start 01/15/19 at 16:30 Lorazepam (Ativan) 0.5 mg PRN Q4HRS PRN PO ANXIETY / AGITATION; Start 01/15/19 at 16:30 Enoxaparin Sodium (Lovenox 40mg Syringe) 40 mg DAILY SQ ; Start 01/16/19 at 09:00; Stop 01/16/19 at 10:46; Status DC Hydralazine HCl (Apresoline Inj) 20 mg PRN Q4HRS PRN IVP ELEVATED BP, SEE COMMENTS Last administered on 01/17/19at 23:10; Start 01/15/19 at 18:30 Diltiazem HCl 125 mg/Dextrose 125 ml @ 5 mls/hr CONT PRN IV SEE I/O RECORD; Start 01/15/19 at 18:30 Lisinopril (Prinivil) 20 mg BID PO Last administered on 01/17/19at 20:58; Start 01/15/19 at 21:00 Fluconazole (Diflucan) 200 mg DAILY PO Last administered on 01/17/19at 09:18; Start 01/16/19 at 09:00 Apixaban (Eliquis) 5 mg BID PO Last administered on 01/17/19at 20:58; Start 01/16/19 at 11:00 Metoprolol Tartrate (Lopressor) 25 mg BID PO Last administered on 01/17/19at 20:57; Start 01/16/19 at 11:00 Spironolactone (Aldactone) 25 mg DAILY PO Last administered on 01/17/19at 14:58; Start 01/17/19 at 14:00 Active Scripts Active Reported Fluconazole 200 Mg Tablet 1 Tab PO DAILY Lisinopril 20 Mg Tablet 1 Tab PO BID Vitals/I & O Vital Sign - Last 24 Hours 01/17/19 01/17/19 01/17/19 01/17/19 14:54 19:35 19:35 20:57 Temp 97.6 98.3 97.6 98.3 Pulse 67 80 69 Resp 20 21 B/P (MAP) 132/57 (82) 186/80 (115) 186/80 Pulse Ox 96 97 O2 Delivery Room Air Room Air Room Air 01/17/19 01/17/19 01/17/19 01/18/19 20:58 23:10 23:14 03:46 Temp 97.6 98.0 97.6 98.0 Pulse 69 69 75 68 Resp 22 18 B/P (MAP) 186/80 187/93 187/93 (124) 160/80 (106) Pulse Ox 95 96 O2 Delivery Room Air Room Air 01/18/19 01/18/19 07:00 08:00 Temp 97.5 97.5 Pulse 70 Resp 18 B/P (MAP) 157/76 (103) Pulse Ox 97 O2 Delivery Room Air Room Air Intake and Output 01/17/19 01/17/19 01/18/19 15:00 23:00 07:00 Intake Total 120 ml 0 ml Balance 120 ml 0 ml VIPIN VAN MD Jan 18, 2019 11:07
--- NOTE | 2019-01-18 12:21 | PDOC ---
PROGRESS NOTES Subjective Subjective Feeling better. Wants to go home. Objective Objective Vital Signs Date Time Temp Pulse Resp B/P (MAP) Pulse Ox O2 Delivery O2 Flow Rate FiO2 01/18/19 11:00 97.4 74 18 154/86 (108) 94 Room Air 97.4 Intake and Output 01/18/19 07:00 Intake Total 120 ml Balance 120 ml Intake Oral 120 ml # Voids 2 Physical Exam Abdomen: Normal bowel sounds, Soft, No tenderness, No hepatosplenomegaly, No masses Heart: Regular rate, Normal S1, Normal S2, No murmurs, Gallops Extremities: No clubbing, No cyanosis, No edema, Normal pulses, No tenderness/swelling General: Alert, Cooperative, No acute distress HEENT: Atraumatic Lungs: Clear to auscultation, Normal air movement Neuro: Normal speech Psych/Mental Status: Mental status NL, Mood NL Skin: No significant lesion Diagnosis HYPERTENSION: Accelerated hypertension RENAL FAILURE: Chronic (CKD stage III) Assessment Assessment 1. AFIB with RVR, new onset. Rate controlled. Continue current medications including eliquis for stroke prophylaxis. 2-D echo showed normal LV systolic function. Possible outpatient cardioversion. 2. Malignant hypertension: Better controlled. Continue current medical regimen. 3. CKD. Nephrology following. Plan Plan of Care Problems Medical Problems: (1) Atrial fibrillation with rapid ventricular response Status: Acute (2) Hypertensive urgency Status: Acute Comment Review of Relevant I have reviewed the following items salvador (where applicable) has been applied. Labs Laboratory Tests Test 01/18/19 06:27 Sodium Level 138 mmol/L (136-145) Potassium Level 4.3 mmol/L (3.5-5.1) Chloride Level 103 mmol/L (98-107) Carbon Dioxide Level 27 mmol/L (21-32) Anion Gap 8 (6-14) Blood Urea Nitrogen 33 mg/dL (7-20) Creatinine 1.3 mg/dL (0.6-1.0) Estimated GFR (Cockcroft-Gault) 39.0 Glucose Level 94 mg/dL (70-99) Calcium Level 8.9 mg/dL (8.5-10.1) Phosphorus Level 3.7 mg/dL (2.6-4.7) Albumin 2.9 g/dL (3.4-5.0) Microbiology 01/15/19 Urine Culture - Final, Complete 01/15/19 Urine Culture Result 1 (HERLINDA) - Final, Complete Medications Current Medications Spironolactone (Aldactone) 25 mg DAILY PO Last administered on 01/17/19at 14:58; Start 01/17/19 at 14:00 Vitals/I & O Vital Sign - Last 24 Hours 01/17/19 01/17/19 01/17/19 01/17/19 14:54 19:35 19:35 20:57 Temp 97.6 98.3 97.6 98.3 Pulse 67 80 69 Resp 20 21 B/P (MAP) 132/57 (82) 186/80 (115) 186/80 Pulse Ox 96 97 O2 Delivery Room Air Room Air Room Air 01/17/19 01/17/19 01/17/19 01/18/19 20:58 23:10 23:14 03:46 Temp 97.6 98.0 97.6 98.0 Pulse 69 69 75 68 Resp 22 18 B/P (MAP) 186/80 187/93 187/93 (124) 160/80 (106) Pulse Ox 95 96 O2 Delivery Room Air Room Air 01/18/19 01/18/19 01/18/19 07:00 08:00 11:00 Temp 97.5 97.4 97.5 97.4 Pulse 70 74 Resp 18 18 B/P (MAP) 157/76 (103) 154/86 (108) Pulse Ox 97 94 O2 Delivery Room Air Room Air Room Air Intake and Output 01/17/19 01/17/19 01/18/19 15:00 23:00 07:00 Intake Total 120 ml 0 ml Balance 120 ml 0 ml MARY ALICE BROCK MD Jan 18, 2019 12:21
[2019-01-18 15:00] VITALS: BP 170/79
[2019-01-18] MEDS: LISINOPRIL 20 MG TABLET PO SCH ×2 (16:03→20:56)
[2019-01-18] MEDS: SPIRONOLACTONE 25 MG TABLET PO SCH (16:04)
[2019-01-18] MEDS: METOPROLOL TART IMMED RELEASE 25 MG TABLET. PO SCH ×2 (16:04→20:55)
[2019-01-18] MEDS: APIXABAN 5 MG TABLET. PO SCH ×2 (16:04→20:55)
[2019-01-18] MEDS: FLUCONAZOLE 100 MG TABLET. PO SCH (16:05)
[2019-01-18] MEDS: DOCUSATE SODIUM 100 MG CAPSULE. PO PRN (16:07)
--- NOTE | 2019-01-18 16:46 | RAD ---
EXAM: Crabtree scale and color Doppler renal artery sonogram. HISTORY: Hypertension. Renal failure. TECHNIQUE: Crabtree scale and color Doppler sonographic imaging of the kidneys and renal arteries with spectral waveform analysis was performed. COMPARISON: None. FINDINGS: The right kidney measures 8.5 cm [id number]. The left kidney measures 9.4 cm [id number]. There is echogenic renal parenchyma. There is a 2.4 cm hypoechoic lesion within the right kidney. There is atherosclerotic plaque involving the aorta. The peak systolic velocity within the right renal artery is 1 heart and 5 cm/s. 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 IMPRESSION: 1. No detectable flow within the distal left renal artery and significantly decreased peak systolic velocity within abnormal waveform within the mid left renal artery. This may be due to severe distal stenosis or segmental occlusion. There is no Doppler evidence of greater than 60 percent stenosis involving the right renal artery. 2. Mild right renal atrophy and echogenic renal parenchyma, a finding which can be seen with medical renal disease. 3. 2.4 cm hypoechoic lesion within the right kidney. This may be a complicated cyst. Sonographic or cross-sectional follow-up is recommended to confirm benignity. Electronically signed by: Darcie Lewis MD (01/18/2019 4:43 PM) [facility]
[2019-01-18 19:30] VITALS: BP 163/70
[2019-01-18 23:10] VITALS: BP 152/69
[2019-01-19] VITALS (7 sets, daily range): BP systolic 154–181; BP diastolic 64–83
[2019-01-19 04:54] LABS: BASO # 0.1 x10^3/uL (0.0-0.2); BASO % 1 % (0-3); EOS # 0.1 x10^3/uL (0.0-0.7); EOS % 1 % (0-3); HEMATOCRIT 43.7 % (36.0-47.0); HEMOGLOBIN 14.6 g/dL (12.0-15.5); LYMPH # 0.9 x10^3/uL (1.0-4.8); LYMPH % 8 % (24-48); MEAN CORPUSCULAR HEMOGLOBIN 29 pg (25-35); MEAN CORPUSCULAR HGB CONC 33 g/dL (31-37); MEAN CORPUSCULAR VOLUME 88 fL (79-100); MONO # 1.4 x10^3/uL (0.0-1.1); MONO % 12 % (0-9); NEUT % 79 % (31-73); PLATELET COUNT 229 x10^3/uL (140-400); RED BLOOD COUNT 4.96 x10^6/uL (3.50-5.40); RED CELL DISTRIBUTION WIDTH 14.4 % (11.5-14.5); WHITE BLOOD COUNT 11.5 x10^3/uL (4.0-11.0)
[2019-01-19 05:12] LABS: ALBUMIN 2.8 g/dL (3.4-5.0); CALCIUM 8.6 mg/dL (8.5-10.1); CREATININE 1.3 mg/dL (0.6-1.0); PHOSPHORUS 4.1 mg/dL (2.6-4.7); POTASSIUM 4.7 mmol/L (3.5-5.1)
[2019-01-19] MEDS: LISINOPRIL 20 MG TABLET PO SCH ×2 (08:33→20:32)
[2019-01-19] MEDS: APIXABAN 5 MG TABLET. PO SCH ×2 (08:33→20:32)
[2019-01-19] MEDS: FLUCONAZOLE 100 MG TABLET. PO SCH (08:34)
[2019-01-19] MEDS: SPIRONOLACTONE 25 MG TABLET PO SCH (08:34)
[2019-01-19] MEDS: METOPROLOL TART IMMED RELEASE 25 MG TABLET. PO SCH ×2 (08:34→20:32)
[2019-01-19] MEDS: ANTI-COAG MONITOR BY PHARMACY. MC PRN ×2 (10:58→11:00)
--- NOTE | 2019-01-19 11:33 | PDOC ---
PROGRESS NOTES Chief Complaint Chief Complaint Assessment/Plan 1. hypertensive urgency, SUBOPTIMAL CONTROL, labile 2. new onset a- fib rvr 3. morbid obesity 4. HYPERLIPIDEMIA 5. mild protein-caloric malnutrition 6. Left renal artery flow limitation plan admit cvc bed cardiology consult dvt prophylaxis echo The Ejection Fraction is 60-65%. There is normal LV segmental wall motion. Mild mitral regurgitation. Mild tricuspid regurgitation. ELIQUIS CATAPRESS TTS-2 PATCH ADDED ALDACTONE 25 MG PO DAILY RENAL DUPLEX DOPPLER STUDY with left distal occlusion Nephrology following 41 min pt exam, chart review, > 50% of time spent with exam, chart review, pt care coordination History of Present Illness History of Present Illness Ms Danielle is an 83 yo female w/ PMHx HTN, CKD who presented secondary to elevated blood pressure. 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 Blood pressure was noted to be significantly elevated with SBP in the 200 range. Was referred to the ED for further evaluation and treatment. Patient denies any complaints including chest pain, palpitations, diaphoresis, SOA, or LE edema. No prior history of CAD. Was noted in AFIB with RVR upon arrival. Cardizem given. Seen by cardiology and nephrology. Found with no detectable left distal renal arterial flow on doppler. Has been on lisinopril with no bump in Cr outpatient. She is still feeling fatigued. After d/w specialists will defer a renal arteriogram as it would not change her treatment plan. D/c in am Vitals Vitals Vital Signs Date Time Temp Pulse Resp B/P (MAP) Pulse Ox O2 Delivery O2 Flow Rate FiO2 01/19/19 08:34 68 181/64 01/19/19 08:00 Room Air 01/19/19 07:00 97.3 18 99 97.3 Physical Exam General: Alert, Cooperative, No acute distress Heart: Regular rate, Normal S1, Normal S2, No murmurs, Gallops Abdomen: Normal bowel sounds, Soft, No tenderness, No hepatosplenomegaly, No masses Extremities: No clubbing, No cyanosis, No edema, Normal pulses, No tenderness/swelling Skin: No significant lesion Labs LABS Laboratory Tests Test 01/19/19 04:20 White Blood Count 11.5 x10^3/uL (4.0-11.0) Red Blood Count 4.96 x10^6/uL (3.50-5.40) Hemoglobin 14.6 g/dL (12.0-15.5) Hematocrit 43.7 % (36.0-47.0) Mean Corpuscular Volume 88 fL (79-100) Mean Corpuscular Hemoglobin 29 pg (25-35) Mean Corpuscular Hemoglobin Concent 33 g/dL (31-37) Red Cell Distribution Width 14.4 % (11.5-14.5) Platelet Count 229 x10^3/uL (140-400) Neutrophils (%) (Auto) 79 % (31-73) Lymphocytes (%) (Auto) 8 % (24-48) Monocytes (%) (Auto) 12 % (0-9) Eosinophils (%) (Auto) 1 % (0-3) Basophils (%) (Auto) 1 % (0-3) Neutrophils # (Auto) 9.0 x10^3/uL (1.8-7.7) Lymphocytes # (Auto) 0.9 x10^3/uL (1.0-4.8) Monocytes # (Auto) 1.4 x10^3/uL (0.0-1.1) Eosinophils # (Auto) 0.1 x10^3/uL (0.0-0.7) Basophils # (Auto) 0.1 x10^3/uL (0.0-0.2) Sodium Level 135 mmol/L (136-145) Potassium Level 4.7 mmol/L (3.5-5.1) Chloride Level 101 mmol/L (98-107) Carbon Dioxide Level 25 mmol/L (21-32) Anion Gap 9 (6-14) Blood Urea Nitrogen 31 mg/dL (7-20) Creatinine 1.3 mg/dL (0.6-1.0) Estimated GFR (Cockcroft-Gault) 39.0 Glucose Level 112 mg/dL (70-99) Calcium Level 8.6 mg/dL (8.5-10.1) Phosphorus Level 4.1 mg/dL (2.6-4.7) Albumin 2.8 g/dL (3.4-5.0) Assessment and Plan Assessmemt and Plan Problems Medical Problems: (1) Atrial fibrillation with rapid ventricular response Status: Acute (2) Hypertensive urgency Status: Acute Comment Review of Relevant I have reviewed the following items salvador (where applicable) has been applied. Labs Laboratory Tests Test 01/18/19 06:27 01/19/19 04:20 Sodium Level 138 mmol/L (136-145) 135 mmol/L (136-145) Potassium Level 4.3 mmol/L (3.5-5.1) 4.7 mmol/L (3.5-5.1) Chloride Level 103 mmol/L (98-107) 101 mmol/L (98-107) Carbon Dioxide Level 27 mmol/L (21-32) 25 mmol/L (21-32) Anion Gap 8 (6-14) 9 (6-14) Blood Urea Nitrogen 33 mg/dL (7-20) 31 mg/dL (7-20) Creatinine 1.3 mg/dL (0.6-1.0) 1.3 mg/dL (0.6-1.0) Estimated GFR (Cockcroft-Gault) 39.0 39.0 Glucose Level 94 mg/dL (70-99) 112 mg/dL (70-99) Calcium Level 8.9 mg/dL (8.5-10.1) 8.6 mg/dL (8.5-10.1) Phosphorus Level 3.7 mg/dL (2.6-4.7) 4.1 mg/dL (2.6-4.7) Albumin 2.9 g/dL (3.4-5.0) 2.8 g/dL (3.4-5.0) White Blood Count 11.5 x10^3/uL (4.0-11.0) Red Blood Count 4.96 x10^6/uL (3.50-5.40) Hemoglobin 14.6 g/dL (12.0-15.5) Hematocrit 43.7 % (36.0-47.0) Mean Corpuscular Volume 88 fL (79-100) Mean Corpuscular Hemoglobin 29 pg (25-35) Mean Corpuscular Hemoglobin Concent 33 g/dL (31-37) Red Cell Distribution Width 14.4 % (11.5-14.5) Platelet Count 229 x10^3/uL (140-400) Neutrophils (%) (Auto) 79 % (31-73) Lymphocytes (%) (Auto) 8 % (24-48) Monocytes (%) (Auto) 12 % (0-9) Eosinophils (%) (Auto) 1 % (0-3) Basophils (%) (Auto) 1 % (0-3) Neutrophils # (Auto) 9.0 x10^3/uL (1.8-7.7) Lymphocytes # (Auto) 0.9 x10^3/uL (1.0-4.8) Monocytes # (Auto) 1.4 x10^3/uL (0.0-1.1) Eosinophils # (Auto) 0.1 x10^3/uL (0.0-0.7) Basophils # (Auto) 0.1 x10^3/uL (0.0-0.2) Laboratory Tests Test 01/19/19 04:20 White Blood Count 11.5 x10^3/uL (4.0-11.0) Red Blood Count 4.96 x10^6/uL (3.50-5.40) Hemoglobin 14.6 g/dL (12.0-15.5) Hematocrit 43.7 % (36.0-47.0) Mean Corpuscular Volume 88 fL (79-100) Mean Corpuscular Hemoglobin 29 pg (25-35) Mean Corpuscular Hemoglobin Concent 33 g/dL (31-37) Red Cell Distribution Width 14.4 % (11.5-14.5) Platelet Count 229 x10^3/uL (140-400) Neutrophils (%) (Auto) 79 % (31-73) Lymphocytes (%) (Auto) 8 % (24-48) Monocytes (%) (Auto) 12 % (0-9) Eosinophils (%) (Auto) 1 % (0-3) Basophils (%) (Auto) 1 % (0-3) Neutrophils # (Auto) 9.0 x10^3/uL (1.8-7.7) Lymphocytes # (Auto) 0.9 x10^3/uL (1.0-4.8) Monocytes # (Auto) 1.4 x10^3/uL (0.0-1.1) Eosinophils # (Auto) 0.1 x10^3/uL (0.0-0.7) Basophils # (Auto) 0.1 x10^3/uL (0.0-0.2) Sodium Level 135 mmol/L (136-145) Potassium Level 4.7 mmol/L (3.5-5.1) Chloride Level 101 mmol/L (98-107) Carbon Dioxide Level 25 mmol/L (21-32) Anion Gap 9 (6-14) Blood Urea Nitrogen 31 mg/dL (7-20) Creatinine 1.3 mg/dL (0.6-1.0) Estimated GFR (Cockcroft-Gault) 39.0 Glucose Level 112 mg/dL (70-99) Calcium Level 8.6 mg/dL (8.5-10.1) Phosphorus Level 4.1 mg/dL (2.6-4.7) Albumin 2.8 g/dL (3.4-5.0) Microbiology 01/15/19 Urine Culture - Final, Complete 01/15/19 Urine Culture Result 1 (HERLINDA) - Final, Complete Medications Current Medications Diltiazem HCl (Cardizem Iv Push) 20 mg 1X ONCE IVP Last administered on 01/15/19at 15:32; Start 01/15/19 at 15:30; Stop 01/15/19 at 15:31; Status DC Ondansetron HCl (Zofran) 4 mg PRN Q8HRS PRN IV NAUSEA/VOMITING; Start 01/15/19 at 15:45; Stop 01/16/19 at 15:44; Status DC Morphine Sulfate (Morphine Sulfate) 2 mg PRN Q2HR PRN IV PAIN; Start 01/15/19 at 15:45; Stop 01/16/19 at 15:44; Status DC Sodium Chloride (Normal Saline Flush) 3 ml QSHIFT PRN IV AFTER MEDS AND BLOOD DRAWS; Start 01/15/19 at 16:30 Ondansetron HCl (Zofran) 4 mg PRN Q4HRS PRN IV NAUSEA/VOMITING; Start 01/15/19 at 16:30 Zolpidem Tartrate (Ambien) 5 mg PRN QHS PRN PO INSOMNIA; Start 01/15/19 at 16:30 Acetaminophen (Tylenol) 650 mg PRN Q4HRS PRN PO TEMP OVER 100.4F OR MILD PAIN; Start 01/15/19 at 16:30 Al Hydroxide/Mg Hydroxide (Mylanta Plus Xs) 30 ml PRN DAILY PRN PO HEARTBURN / GAS; Start 01/15/19 at 16:30 Clonidine HCl (Catapres) 0.1 mg PRN Q6HRS PRN PO SBP>160 OR DBP>90 Last administered on 01/15/19at 23:21; Start 01/15/19 at 16:30 Docusate Sodium (Colace) 100 mg PRN BID PRN PO CONSTIPATION Last administered on 01/18/19at 16:07; Start 01/15/19 at 16:30 Albuterol Sulfate (Ventolin Neb Soln) 2.5 mg PRN Q4HRS PRN NEB SHORTNESS OF BREATH; Start 01/15/19 at 16:30 Guaifenesin (Robitussin) 200 mg PRN Q4HRS PRN PO COUGH; Start 01/15/19 at 16:30 Lorazepam (Ativan) 0.5 mg PRN Q4HRS PRN PO ANXIETY / AGITATION; Start 01/15/19 at 16:30 Enoxaparin Sodium (Lovenox 40mg Syringe) 40 mg DAILY SQ ; Start 01/16/19 at 09:00; Stop 01/16/19 at 10:46; Status DC Hydralazine HCl (Apresoline Inj) 20 mg PRN Q4HRS PRN IVP ELEVATED BP, SEE COMMENTS Last administered on 01/17/19at 23:10; Start 01/15/19 at 18:30 Diltiazem HCl 125 mg/Dextrose 125 ml @ 5 mls/hr CONT PRN IV SEE I/O RECORD; Start 01/15/19 at 18:30 Lisinopril (Prinivil) 20 mg BID PO Last administered on 01/19/19at 08:33; Start 01/15/19 at 21:00 Fluconazole (Diflucan) 200 mg DAILY PO Last administered on 01/19/19at 08:34; Start 01/16/19 at 09:00 Apixaban (Eliquis) 5 mg BID PO Last administered on 01/19/19 08:33; Start 01/16/19 at 11:00 Metoprolol Tartrate (Lopressor) 25 mg BID PO Last administered on 01/19/19at 08:34; Start 01/16/19 at 11:00 Spironolactone (Aldactone) 25 mg DAILY PO Last administered on 01/19/19 08:34; Start 01/17/19 at 14:00 Info (Anti-Coagulation Monitoring By Pharmacy) 1 each PRN DAILY PRN MC SEE COMMENTS; Start 01/19/19 at 07:45 Active Scripts Active Reported Fluconazole 200 Mg Tablet 1 Tab PO DAILY Lisinopril 20 Mg Tablet 1 Tab PO BID Vitals/I & O Vital Sign - Last 24 Hours 01/18/19 01/18/19 01/18/19 01/18/19 11:00 15:00 16:03 16:04 Temp 97.4 97.2 97.4 97.2 Pulse 74 84 86 83 Resp 18 18 B/P (MAP) 154/86 (108) 170/79 (109) 170/79 170/79 Pulse Ox 94 94 O2 Delivery Room Air Room Air 01/18/19 01/18/19 01/18/19 01/18/19 19:30 19:57 20:55 20:56 Temp 97.7 97.7 Pulse 73 73 73 Resp 18 B/P (MAP) 163/70 (101) 163/70 163/70 Pulse Ox 97 O2 Delivery Room Air Room Air 01/18/19 01/19/19 01/19/19 01/19/19 23:10 03:05 07:00 08:00 Temp 97.8 97.4 97.3 97.8 97.4 97.3 Pulse 69 62 68 Resp 18 18 18 B/P (MAP) 152/69 (96) 154/75 (101) 181/64 (103) Pulse Ox 97 96 99 O2 Delivery Room Air Room Air Room Air Room Air 01/19/19 01/19/19 08:33 08:34 Pulse 68 68 B/P (MAP) 181/64 181/64 Intake and Output 01/18/19 01/18/19 01/19/19 15:00 23:00 07:00 Intake Total 200 ml 300 ml Balance 200 ml 300 ml Images Renal duplex - 1. No detectable flow within the distal left renal artery and significantly decreased peak systolic velocity within abnormal waveform within the mid left renal artery. This may be due to severe distal stenosis or segmental occlusion. There is no Doppler evidence of greater than 60 percent stenosis involving the right renal artery. 2. Mild right renal atrophy and echogenic renal parenchyma, a finding which can be seen with medical renal disease. 3. 2.4 cm hypoechoic lesion within the right kidney. This may be a complicated cyst. Sonographic or cross-sectional follow-up is recommended to confirm benignity GRAHAM ROPER MD Jan 19, 2019 11:33
--- NOTE | 2019-01-19 12:13 | NUR ---
SS following up with discharge planning. Pt is from home with spouse and is currently on room air. SS will continue to follow for discharge planning.
--- NOTE | 2019-01-19 13:17 | PDOC ---
EVA HERNANDEZ JAREN 01/19/19 1317: CARDIO Progress Notes Date and Time Date of Service 01/19/19 Time of Evaluation 1145 Subjective Subjective: No Chest Pain, No shortness of breath, No Palpitations Vitals Vitals Vital Signs Date Time Temp Pulse Resp B/P (MAP) Pulse Ox O2 Delivery O2 Flow Rate FiO2 01/19/19 11:12 97.6 65 18 168/76 (106) 97 Room Air 97.6 Weight Weight [ ] Input and Output Intake and Output Intake and Output 01/19/19 07:00 Intake Total 500 ml Balance 500 ml Intake Oral 500 ml # Voids 1 Laboratory Labs Laboratory Tests Test 01/19/19 04:20 White Blood Count 11.5 x10^3/uL (4.0-11.0) Red Blood Count 4.96 x10^6/uL (3.50-5.40) Hemoglobin 14.6 g/dL (12.0-15.5) Hematocrit 43.7 % (36.0-47.0) Mean Corpuscular Volume 88 fL (79-100) Mean Corpuscular Hemoglobin 29 pg (25-35) Mean Corpuscular Hemoglobin Concent 33 g/dL (31-37) Red Cell Distribution Width 14.4 % (11.5-14.5) Platelet Count 229 x10^3/uL (140-400) Neutrophils (%) (Auto) 79 % (31-73) Lymphocytes (%) (Auto) 8 % (24-48) Monocytes (%) (Auto) 12 % (0-9) Eosinophils (%) (Auto) 1 % (0-3) Basophils (%) (Auto) 1 % (0-3) Neutrophils # (Auto) 9.0 x10^3/uL (1.8-7.7) Lymphocytes # (Auto) 0.9 x10^3/uL (1.0-4.8) Monocytes # (Auto) 1.4 x10^3/uL (0.0-1.1) Eosinophils # (Auto) 0.1 x10^3/uL (0.0-0.7) Basophils # (Auto) 0.1 x10^3/uL (0.0-0.2) Sodium Level 135 mmol/L (136-145) Potassium Level 4.7 mmol/L (3.5-5.1) Chloride Level 101 mmol/L (98-107) Carbon Dioxide Level 25 mmol/L (21-32) Anion Gap 9 (6-14) Blood Urea Nitrogen 31 mg/dL (7-20) Creatinine 1.3 mg/dL (0.6-1.0) Estimated GFR (Cockcroft-Gault) 39.0 Glucose Level 112 mg/dL (70-99) Calcium Level 8.6 mg/dL (8.5-10.1) Phosphorus Level 4.1 mg/dL (2.6-4.7) Albumin 2.8 g/dL (3.4-5.0) Microbiology Micro Microbiology 01/15/19 Urine Culture - Final, Complete 01/15/19 Urine Culture Result 1 (HERLINDA) - Final, Complete Physical Exam HEENT: Neck Supple W Full Motion Chest: Symmetric LUNGS: Clear to Auscultation Heart: S1S2, irregularly irregular Abdomen: Soft N/T Extremities: No Edema Neurology: alert, oriented, follow commands Assessment Assessment 1. AFIB with RVR, new onset. Rate controlled with metoprolol. Eliquis for stroke prophylaxis. 2-D echo showed normal LV systolic function. 2. Malignant hypertension: remains elevated 3. CKD; Cr stable 4. CINDA; IR consulted Recommendations Continue ACEi Add amlodipine for BP control Add Amiodarone therapy Continue Eliquis for stroke prophylaxis; will provide with 30-day supply of samples Probable outpatient CV. Supportive care RICARDO NUNEZ MD 01/19/19 2316: CARDIO Progress Notes Plan Plan Pt. seen and examined. 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 Await IR/Nephro decision regarding angio. Thanks EVA HERNANDEZ APRN Jan 19, 2019 13:17 RICARDO NUNEZ MD Jan 19, 2019 23:16
--- NOTE | 2019-01-19 14:28 | PDOC ---
SUBJECTIVE ROS No complaints, sitting in chair, family at bedside OBJECTIVE Vital Signs Vital Signs Date Time Temp Pulse Resp B/P (MAP) Pulse Ox O2 Delivery O2 Flow Rate FiO2 01/19/19 11:12 97.6 65 18 168/76 (106) 97 Room Air 97.6 I & 0 Intake and Output 01/19/19 06:59 Intake Total 500 ml Balance 500 ml Intake Oral 500 ml # Voids 1 PHYSICAL EXAM Physical Exam General: Alert, Oriented X3, Cooperative, No acute distress Neck Supple HEENT: Atraumatic, OM moist Lungs: Clear to auscultation Heart: Normal S1, Normal S2, No murmurs, Other (IRR; AFIB rate controlled ) Abdomen: Soft, No tenderness Extremities: No edema, Neuro: Normal speech, Sensation intact Psych/Mental Status: Mental status NL, Mood NL No adams, no cva or sp tenderness Skin No rash DIAGNOSIS/ASSESSMENT Assessment & Plan ALICIA Cardiorenal Back to baseline ,Supportive care CKD- suspect 2/2 HTNsive Nephrosclerosis Cr back to baseline (1.1-1.2) - stable since Late Nov 2018 , Had ALICIA in 2018 with Cr 2.1 E-Lytes and acid base stable,UA unremarkable Supportive care, Avoid nephrotoxins, I/O , Monitor AFIB with RVR, new onset. Rate controlled Per Cardiology metoprolol for rate control, OAC with Eliquis Malignant hypertension- BP at goal at past visits to our office only on lisinopril 20 mg PO bid at home Severe Lt renal art - distal or segmental occlusion BP have been well controlled in past only with 1 medication- Lisinopril 20 bid If failure to control BP with optimal medical therapy may need to consider Revascularization Renal Doppler 1. No detectable flow within the distal left renal artery and significantly decreased peak systolic velocity within abnormal waveform within the mid left renal artery. This may be due to severe distal stenosis or segmental occlusion. There is no Doppler evidence of greater than 60 percent stenosis involving the right renal artery. 2. Mild right renal atrophy and echogenic renal parenchyma, a finding which can be seen with medical renal disease. 3. 2.4 cm hypoechoic lesion within the right kidney. This may be a complicated cyst. Sonographic or cross-sectional follow-up is recommended to confirm benignity. Discussed with Pt,family and RN COMMENT/RELEVANT DATA Meds Current Medications Medications (Trade) Dose Ordered Sig/Ricardo Start Time Stop Time Status Last Admin Dose Admin Acetaminophen (Tylenol) 650 mg PRN Q4HRS PRN 01/15/19 16:30 Al Hydroxide/Mg Hydroxide (Mylanta Plus Xs) 30 ml PRN DAILY PRN 01/15/19 16:30 Albuterol Sulfate (Ventolin Neb Soln) 2.5 mg PRN Q4HRS PRN 01/15/19 16:30 Amlodipine Besylate (Norvasc) 5 mg DAILY 01/19/19 13:15 Apixaban (Eliquis) 5 mg BID 01/16/19 11:00 01/19/19 08:33 5 MG Clonidine HCl (Catapres) 0.1 mg PRN Q6HRS PRN 01/15/19 16:30 01/15/19 23:21 0.1 MG Diltiazem HCl (Cardizem Iv Push) 20 mg 1X ONCE 01/15/19 15:30 01/15/19 15:31 DC 01/15/19 15:32 20 MG Diltiazem HCl 125 mg/Dextrose 125 ml @ 5 mls/hr CONT PRN 01/15/19 18:30 Docusate Sodium (Colace) 100 mg PRN BID PRN 01/15/19 16:30 01/18/19 16:07 100 MG Enoxaparin Sodium (Lovenox 40mg Syringe) 40 mg DAILY 01/16/19 09:00 01/16/19 10:46 DC Fluconazole (Diflucan) 200 mg DAILY 01/16/19 09:00 01/19/19 08:34 200 MG Guaifenesin (Robitussin) 200 mg PRN Q4HRS PRN 01/15/19 16:30 Hydralazine HCl (Apresoline Inj) 20 mg PRN Q4HRS PRN 01/15/19 18:30 01/17/19 23:10 20 MG Info (Anti-Coagulation Monitoring By Pharmacy) 1 each PRN DAILY PRN 01/19/19 07:45 01/19/19 11:00 1 EACH Lisinopril (Prinivil) 20 mg BID 01/15/19 21:00 01/19/19 08:33 20 MG Lorazepam (Ativan) 0.5 mg PRN Q4HRS PRN 01/15/19 16:30 Metoprolol Tartrate (Lopressor) 25 mg BID 01/16/19 11:00 01/19/19 08:34 25 MG Morphine Sulfate (Morphine Sulfate) 2 mg PRN Q2HR PRN 01/15/19 15:45 01/16/19 15:44 DC Ondansetron HCl (Zofran) 4 mg PRN Q4HRS PRN 01/15/19 16:30 Sodium Chloride (Normal Saline Flush) 3 ml QSHIFT PRN 01/15/19 16:30 Spironolactone (Aldactone) 25 mg DAILY 01/17/19 14:00 01/19/19 08:34 25 MG Zolpidem Tartrate (Ambien) 5 mg PRN QHS PRN 01/15/19 16:30 Lab Laboratory Tests Test 01/19/19 04:20 White Blood Count 11.5 x10^3/uL (4.0-11.0) Red Blood Count 4.96 x10^6/uL (3.50-5.40) Hemoglobin 14.6 g/dL (12.0-15.5) Hematocrit 43.7 % (36.0-47.0) Mean Corpuscular Volume 88 fL (79-100) Mean Corpuscular Hemoglobin 29 pg (25-35) Mean Corpuscular Hemoglobin Concent 33 g/dL (31-37) Red Cell Distribution Width 14.4 % (11.5-14.5) Platelet Count 229 x10^3/uL (140-400) Neutrophils (%) (Auto) 79 % (31-73) Lymphocytes (%) (Auto) 8 % (24-48) Monocytes (%) (Auto) 12 % (0-9) Eosinophils (%) (Auto) 1 % (0-3) Basophils (%) (Auto) 1 % (0-3) Neutrophils # (Auto) 9.0 x10^3/uL (1.8-7.7) Lymphocytes # (Auto) 0.9 x10^3/uL (1.0-4.8) Monocytes # (Auto) 1.4 x10^3/uL (0.0-1.1) Eosinophils # (Auto) 0.1 x10^3/uL (0.0-0.7) Basophils # (Auto) 0.1 x10^3/uL (0.0-0.2) Sodium Level 135 mmol/L (136-145) Potassium Level 4.7 mmol/L (3.5-5.1) Chloride Level 101 mmol/L (98-107) Carbon Dioxide Level 25 mmol/L (21-32) Anion Gap 9 (6-14) Blood Urea Nitrogen 31 mg/dL (7-20) Creatinine 1.3 mg/dL (0.6-1.0) Estimated GFR (Cockcroft-Gault) 39.0 Glucose Level 112 mg/dL (70-99) Calcium Level 8.6 mg/dL (8.5-10.1) Phosphorus Level 4.1 mg/dL (2.6-4.7) Albumin 2.8 g/dL (3.4-5.0) Results All relevant outside records, renal labs, imaging studies, telemetry/EKG's were reviewed. OFELIA FLANAGAN MD Jan 19, 2019 14:27
[2019-01-19] MEDS: amLODIPine BESYLATE 5 MG TABLET PO SCH (14:40)
[2019-01-19] MEDS ORDERED: amLODIPine BESYLATE 5 MG TABLET PO ONE (15:00)
--- NOTE | 2019-01-19 15:21 | PDOC ---
Provider Note Provider Note Pt. seen and examined. See VOIP NETWORK TECHNICIAN note for full details. Reviewed renal duplex study. Do not suspect significant stenosis - images limited. DDx is thrombus from afib as well. Given lack of any significant change in renal function with wilder-inh and since is not yet maxed out on medical therapy, would defer renal angio from a CV perspective but defer to nephrology/PCP and IR teams. Thanks. We will set up for an outpt CVN. Start amiodarone as well. RICARDO NUNEZ MD Jan 19, 2019 15:20
[2019-01-19] MEDS: AMIODARONE HCL 200 MG TABLET. PO SCH (15:23)
[2019-01-20 03:35] VITALS: BP 155/67
[2019-01-20 07:00] VITALS: BP 153/71
[2019-01-20] MEDS: APIXABAN 5 MG TABLET. PO SCH (08:27)
--- NOTE | 2019-01-20 08:27 | PDOC ---
PROGRESS NOTES Chief Complaint Chief Complaint Assessment/Plan 1. hypertensive urgency, SUBOPTIMAL CONTROL, labile 2. new onset a- fib rvr 3. morbid obesity 4. HYPERLIPIDEMIA 5. mild protein-caloric malnutrition 6. Left renal artery flow limitation plan ELIQUIS ADDED ALDACTONE 25 MG PO DAILY RENAL DUPLEX DOPPLER STUDY with left distal occlusion Nephrology following 41 min pt exam, chart review, > 50% of time spent with exam, chart review, pt care coordination History of Present Illness History of Present Illness Ms Danielle is an 83 yo female w/ PMHx HTN, CKD who presented secondary to elevated blood pressure. Patient was at routine check up with financial sales consultant. Blood pressure was noted to be significantly elevated with SBP in the 200 range. Was referred to the ED for further evaluation and treatment. Patient denies any complaints including chest pain, palpitations, diaphoresis, SOA, or LE edema. No prior history of CAD. Was noted in AFIB with RVR upon arrival. Cardizem given. Seen by cardiology and nephrology. Found with no detectable left distal renal ar terial flow on doppler. Has been on lisinopril with no bump in Cr outpatient. She is still feeling fatigued. After d/w specialists will defer a renal arteriogram as it would not change her treatment plan. Vitals Vitals Vital Signs Date Time Temp Pulse Resp B/P (MAP) Pulse Ox O2 Delivery O2 Flow Rate FiO2 01/20/19 07:00 97.8 64 18 153/71 (98) 96 Room Air 97.8 Physical Exam General: Alert, Cooperative, No acute distress Heart: Regular rate, Normal S1, Normal S2, No murmurs, Gallops Abdomen: Normal bowel sounds, Soft, No tenderness, No hepatosplenomegaly, No masses Extremities: No clubbing, No cyanosis, No edema, Normal pulses, No tenderness/swelling Skin: No significant lesion Labs LABS Laboratory Tests Test 01/19/19 18:40 Prothrombin Time 18.0 SEC (11.7-14.0) Prothromb Time International Ratio 1.5 (0.8-1.1) Assessment and Plan Assessmemt and Plan Problems Medical Problems: (1) Atrial fibrillation with rapid ventricular response Status: Acute (2) Hypertensive urgency Status: Acute Comment Review of Relevant I have reviewed the following items salvador (where applicable) has been applied. Labs Laboratory Tests Test 01/19/19 04:20 01/19/19 18:40 White Blood Count 11.5 x10^3/uL (4.0-11.0) Red Blood Count 4.96 x10^6/uL (3.50-5.40) Hemoglobin 14.6 g/dL (12.0-15.5) Hematocrit 43.7 % (36.0-47.0) Mean Corpuscular Volume 88 fL (79-100) Mean Corpuscular Hemoglobin 29 pg (25-35) Mean Corpuscular Hemoglobin Concent 33 g/dL (31-37) Red Cell Distribution Width 14.4 % (11.5-14.5) Platelet Count 229 x10^3/uL (140-400) Neutrophils (%) (Auto) 79 % (31-73) Lymphocytes (%) (Auto) 8 % (24-48) Monocytes (%) (Auto) 12 % (0-9) Eosinophils (%) (Auto) 1 % (0-3) Basophils (%) (Auto) 1 % (0-3) Neutrophils # (Auto) 9.0 x10^3/uL (1.8-7.7) Lymphocytes # (Auto) 0.9 x10^3/uL (1.0-4.8) Monocytes # (Auto) 1.4 x10^3/uL (0.0-1.1) Eosinophils # (Auto) 0.1 x10^3/uL (0.0-0.7) Basophils # (Auto) 0.1 x10^3/uL (0.0-0.2) Sodium Level 135 mmol/L (136-145) Potassium Level 4.7 mmol/L (3.5-5.1) Chloride Level 101 mmol/L (98-107) Carbon Dioxide Level 25 mmol/L (21-32) Anion Gap 9 (6-14) Blood Urea Nitrogen 31 mg/dL (7-20) Creatinine 1.3 mg/dL (0.6-1.0) Estimated GFR (Cockcroft-Gault) 39.0 Glucose Level 112 mg/dL (70-99) Calcium Level 8.6 mg/dL (8.5-10.1) Phosphorus Level 4.1 mg/dL (2.6-4.7) Albumin 2.8 g/dL (3.4-5.0) Prothrombin Time 18.0 SEC (11.7-14.0) Prothromb Time International Ratio 1.5 (0.8-1.1) Laboratory Tests Test 01/19/19 18:40 Prothrombin Time 18.0 SEC (11.7-14.0) Prothromb Time International Ratio 1.5 (0.8-1.1) Microbiology 01/15/19 Urine Culture - Final, Complete 01/15/19 Urine Culture Result 1 (HERLINDA) - Final, Complete Medications Current Medications Diltiazem HCl (Cardizem Iv Push) 20 mg 1X ONCE IVP Last administered on 01/15/19at 15:32; Start 01/15/19 at 15:30; Stop 01/15/19 at 15:31; Status DC Ondansetron HCl (Zofran) 4 mg PRN Q8HRS PRN IV NAUSEA/VOMITING; Start 01/15/19 at 15:45; Stop 01/16/19 at 15:44; Status DC Morphine Sulfate (Morphine Sulfate) 2 mg PRN Q2HR PRN IV PAIN; Start 01/15/19 at 15:45; Stop 01/16/19 at 15:44; Status DC Sodium Chloride (Normal Saline Flush) 3 ml QSHIFT PRN IV AFTER MEDS AND BLOOD DRAWS; Start 01/15/19 at 16:30 Ondansetron HCl (Zofran) 4 mg PRN Q4HRS PRN IV NAUSEA/VOMITING; Start 01/15/19 at 16:30 Zolpidem Tartrate (Ambien) 5 mg PRN QHS PRN PO INSOMNIA; Start 01/15/19 at 16:30 Acetaminophen (Tylenol) 650 mg PRN Q4HRS PRN PO TEMP OVER 100.4F OR MILD PAIN; Start 01/15/19 at 16:30 Al Hydroxide/Mg Hydroxide (Mylanta Plus Xs) 30 ml PRN DAILY PRN PO HEARTBURN / GAS; Start 01/15/19 at 16:30 Clonidine HCl (Catapres) 0.1 mg PRN Q6HRS PRN PO SBP>160 OR DBP>90 Last administered on 01/15/19at 23:21; Start 01/15/19 at 16:30 Docusate Sodium (Colace) 100 mg PRN BID PRN PO CONSTIPATION Last administered on 01/18/19at 16:07; Start 01/15/19 at 16:30 Albuterol Sulfate (Ventolin Neb Soln) 2.5 mg PRN Q4HRS PRN NEB SHORTNESS OF BREATH; Start 01/15/19 at 16:30 Guaifenesin (Robitussin) 200 mg PRN Q4HRS PRN PO COUGH; Start 01/15/19 at 16:30 Lorazepam (Ativan) 0.5 mg PRN Q4HRS PRN PO ANXIETY / AGITATION; Start 01/15/19 at 16:30 Enoxaparin Sodium (Lovenox 40mg Syringe) 40 mg DAILY SQ ; Start 01/16/19 at 09:00; Stop 01/16/19 at 10:46; Status DC Hydralazine HCl (Apresoline Inj) 20 mg PRN Q4HRS PRN IVP ELEVATED BP, SEE COMMENTS Last administered on 01/17/19at 23:10; Start 01/15/19 at 18:30 Diltiazem HCl 125 mg/Dextrose 125 ml @ 5 mls/hr CONT PRN IV SEE I/O RECORD; Start 01/15/19 at 18:30 Lisinopril (Prinivil) 20 mg BID PO Last administered on 01/19/19at 20:32; Start 01/15/19 at 21:00 Fluconazole (Diflucan) 200 mg DAILY PO Last administered on 01/19/19 08:34; Start 01/16/19 at 09:00 Apixaban (Eliquis) 5 mg BID PO Last administered on 01/19/19 20:32; Start 01/16/19 at 11:00 Metoprolol Tartrate (Lopressor) 25 mg BID PO Last administered on 01/19/19 20:32; Start 01/16/19 at 11:00 Spironolactone (Aldactone) 25 mg DAILY PO Last administered on 01/19/19 08:34; Start 01/17/19 at 14:00 Info (Anti-Coagulation Monitoring By Pharmacy) 1 each PRN DAILY PRN MC SEE COMMENTS Last administered on 01/19/19 11:00; Start 01/19/19 at 07:45 Amlodipine Besylate (Norvasc) 5 mg DAILY PO Last administered on 01/19/19at 14:40; Start 01/19/19 at 13:15 Amlodipine Besylate (Norvasc) 5 mg 1X ONCE PO Last administered on 01/19/19at 15:23; Start 01/19/19 at 15:00; Stop 01/19/19 at 15:02; Status DC Amiodarone HCl (Cordarone) 200 mg DAILY PO Last administered on 01/19/19at 15:23; Start 01/19/19 at 15:15 Active Scripts Active Reported Fluconazole 200 Mg Tablet 1 Tab PO DAILY Lisinopril 20 Mg Tablet 1 Tab PO BID Vitals/I & O Vital Sign - Last 24 Hours 01/19/19 01/19/19 01/19/19 01/19/19 08:33 08:34 11:12 14:40 Temp 97.6 97.6 Pulse 68 68 65 81 Resp 18 B/P (MAP) 181/64 181/64 168/76 (106) 173/74 Pulse Ox 97 O2 Delivery Room Air 01/19/19 01/19/19 01/19/19 01/19/19 15:00 15:23 15:23 18:41 Temp 97.4 97.4 Pulse 80 80 80 Resp 18 B/P (MAP) 173/74 (107) 173/74 173/74 155/72 (99) Pulse Ox 97 O2 Delivery Room Air 01/19/19 01/19/19 01/19/19 01/19/19 19:05 20:00 20:32 20:32 Temp 98.3 98.3 Pulse 61 61 61 Resp 18 B/P (MAP) 160/83 (108) 160/83 160/83 Pulse Ox 95 O2 Delivery Room Air Room Air 01/19/19 01/20/19 01/20/19 23:10 03:35 07:00 Temp 97.7 97.7 97.8 97.7 97.7 97.8 Pulse 67 66 64 Resp 18 18 18 B/P (MAP) 160/68 (98) 155/67 (96) 153/71 (98) Pulse Ox 97 97 96 O2 Delivery Room Air Room Air Room Air Intake and Output 01/19/19 01/19/19 01/20/19 15:00 23:00 07:00 Intake Total 480 ml 240 ml 200 ml Balance 480 ml 240 ml 200 ml GRAHAM ROPER MD Jan 20, 2019 08:27
[2019-01-20] MEDS: METOPROLOL TART IMMED RELEASE 25 MG TABLET. PO SCH (08:28)
[2019-01-20] MEDS: FLUCONAZOLE 100 MG TABLET. PO SCH (08:28)
[2019-01-20] MEDS: AMIODARONE HCL 200 MG TABLET. PO SCH (08:28)
[2019-01-20] MEDS: SPIRONOLACTONE 25 MG TABLET PO SCH (08:29)
[2019-01-20] MEDS: LISINOPRIL 20 MG TABLET PO SCH (08:29)
[2019-01-20] MEDS: amLODIPine BESYLATE 5 MG TABLET PO SCH (08:29)
--- NOTE | 2019-01-20 10:51 | PDOC ---
SUBJECTIVE ROS No complaints, sitting in chair, family at bedside OBJECTIVE Vital Signs Vital Signs Date Time Temp Pulse Resp B/P (MAP) Pulse Ox O2 Delivery O2 Flow Rate FiO2 01/20/19 08:29 64 153/71 01/20/19 08:00 Room Air 01/20/19 07:00 97.8 18 96 97.8 I & 0 Intake and Output 01/20/19 07:00 Intake Total 920 ml Balance 920 ml Intake Oral 920 ml # Voids 5 PHYSICAL EXAM Physical Exam General: Alert, Oriented X3, Cooperative, No acute distress Neck Supple HEENT: Atraumatic, OM moist Lungs: Clear to auscultation Heart: Normal S1, Normal S2, No murmurs, Other (IRR; AFIB rate controlled ) Abdomen: Soft, No tenderness Extremities: No edema, Neuro: Normal speech, Sensation intact Psych/Mental Status: Mental status NL, Mood NL No adams, no cva or sp tenderness Skin No rash DIAGNOSIS/ASSESSMENT Assessment & Plan ALICIA Cardiorenal Supportive care , Avoid nephrotoxins CKD- suspect 2/2 HTNsive Nephrosclerosis baseline (1.1-1.2) - stable since Late Nov 2018 , Had ALICIA in 2018 with Cr 2.1 E-Lytes and acid base stable,UA unremarkable Supportive care, Avoid nephrotoxins, I/O , Monitor AFIB with RVR, new onset. 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 No detectable flow within the distal left renal artery and significantly decreased peak systolic velocity within abnormal waveform within the mid left renal artery. This may be due to severe distal stenosis or segmental occlusion. There is no Doppler evidence of greater than 60 percent stenosis involving the right renal artery. 2. Mild right renal atrophy and echogenic renal parenchyma, a finding which can be seen with medical renal disease. 3. 2.4 cm hypoechoic lesion within the right kidney. This may be a complicated cyst. Sonographic or cross-sectional follow-up is recommended to confirm benignity. Discussed with Pt and family c COMMENT/RELEVANT DATA Meds Current Medications Medications (Trade) Dose Ordered Sig/Ricardo Start Time Stop Time Status Last Admin Dose Admin Acetaminophen (Tylenol) 650 mg PRN Q4HRS PRN 01/15/19 16:30 Al Hydroxide/Mg Hydroxide (Mylanta Plus Xs) 30 ml PRN DAILY PRN 01/15/19 16:30 Albuterol Sulfate (Ventolin Neb Soln) 2.5 mg PRN Q4HRS PRN 01/15/19 16:30 Amiodarone HCl (Cordarone) 200 mg DAILY 01/19/19 15:15 01/20/19 08:28 200 MG Amlodipine Besylate (Norvasc) 5 mg 1X ONCE 01/19/19 15:00 01/19/19 15:02 DC 01/19/19 15:23 5 MG Apixaban (Eliquis) 5 mg BID 01/16/19 11:00 01/20/19 08:27 5 MG Clonidine HCl (Catapres) 0.1 mg PRN Q6HRS PRN 01/15/19 16:30 01/15/19 23:21 0.1 MG Diltiazem HCl (Cardizem Iv Push) 20 mg 1X ONCE 01/15/19 15:30 01/15/19 15:31 DC 01/15/19 15:32 20 MG Diltiazem HCl 125 mg/Dextrose 125 ml @ 5 mls/hr CONT PRN 01/15/19 18:30 Docusate Sodium (Colace) 100 mg PRN BID PRN 01/15/19 16:30 01/18/19 16:07 100 MG Enoxaparin Sodium (Lovenox 40mg Syringe) 40 mg DAILY 01/16/19 09:00 01/16/19 10:46 DC Fluconazole (Diflucan) 200 mg DAILY 01/16/19 09:00 01/20/19 08:28 200 MG Guaifenesin (Robitussin) 200 mg PRN Q4HRS PRN 01/15/19 16:30 Hydralazine HCl (Apresoline Inj) 20 mg PRN Q4HRS PRN 01/15/19 18:30 10/26/19 23:10 20 MG Info (Anti-Coagulation Monitoring By Pharmacy) 1 each PRN DAILY PRN 01/19/19 07:45 01/19/19 11:00 1 EACH Lisinopril (Prinivil) 20 mg BID 01/15/19 21:00 01/20/19 08:29 20 MG Lorazepam (Ativan) 0.5 mg PRN Q4HRS PRN 01/15/19 16:30 Metoprolol Tartrate (Lopressor) 25 mg BID 01/16/19 11:00 01/20/19 08:28 25 MG Morphine Sulfate (Morphine Sulfate) 2 mg PRN Q2HR PRN 01/15/19 15:45 01/16/19 15:44 DC Ondansetron HCl (Zofran) 4 mg PRN Q4HRS PRN 01/15/19 16:30 Sodium Chloride (Normal Saline Flush) 3 ml QSHIFT PRN 01/15/19 16:30 Spironolactone (Aldactone) 25 mg DAILY 01/17/19 14:00 01/20/19 08:29 25 MG Zolpidem Tartrate (Ambien) 5 mg PRN QHS PRN 01/15/19 16:30 Lab Laboratory Tests Test 01/19/19 18:40 Prothrombin Time 18.0 SEC (11.7-14.0) Prothromb Time International Ratio 1.5 (0.8-1.1) Results All relevant outside records, renal labs, imaging studies, telemetry/EKG's were reviewed. OFELIA FLANAGAN MD Jan 20, 2019 10:51
[2019-01-20] MEDS ORDERED: NYSTATIN TOPICAL POWDER 15GM BOTTLE. TP SCH (11:00)
[2019-01-20] MEDS ORDERED: AMIO200T4 PO (11:06)
[2019-01-20] MEDS ORDERED: SPIR25TA PO (11:06)
[2019-01-20] MEDS ORDERED: METO25TA4 PO (11:06)
[2019-01-20] MEDS ORDERED: AMLO5TAB10 PO (11:06)
[2019-01-20] MEDS ORDERED: APIX5TAB PO (11:10)
--- NOTE | 2019-01-20 11:13 | PDOC3 ---
Discharge Summary Visit Information Date of Admission: Jan 15, 2019 Date of Discharge: Jan 20, 2019 Admitting Diagnosis: Afib with RVR Final Diagnosis Problems Medical Problems: (1) Atrial fibrillation with rapid ventricular response Status: Acute (2) Hypertensive urgency Status: Acute Brief Hospital Course Allergies Allergies Coded Allergies Type Severity Reaction Last Updated Verified Penicillins Allergy Intermediate 01/16/19 Yes allopurinol Allergy Intermediate 01/16/19 Yes cephalexin Allergy Intermediate rash 01/15/19 Yes doxycycline Allergy Intermediate 01/16/19 Yes naproxen Allergy Intermediate rash/hives 01/15/19 Yes azithromycin Allergy Mild "made me sick" 01/16/19 Yes omeprazole Allergy Mild 01/16/19 Yes Vital Signs Vital Signs Date Time Temp Pulse Resp B/P (MAP) Pulse Ox O2 Delivery O2 Flow Rate FiO2 01/20/19 08:29 64 153/71 01/20/19 08:00 Room Air 01/20/19 07:00 97.8 18 96 97.8 Lab Results Laboratory Tests Test 01/19/19 04:20 01/19/19 18:40 White Blood Count 11.5 x10^3/uL (4.0-11.0) Red Blood Count 4.96 x10^6/uL (3.50-5.40) Hemoglobin 14.6 g/dL (12.0-15.5) Hematocrit 43.7 % (36.0-47.0) Mean Corpuscular Volume 88 fL (79-100) Mean Corpuscular Hemoglobin 29 pg (25-35) Mean Corpuscular Hemoglobin Concent 33 g/dL (31-37) Red Cell Distribution Width 14.4 % (11.5-14.5) Platelet Count 229 x10^3/uL (140-400) Neutrophils (%) (Auto) 79 % (31-73) Lymphocytes (%) (Auto) 8 % (24-48) Monocytes (%) (Auto) 12 % (0-9) Eosinophils (%) (Auto) 1 % (0-3) Basophils (%) (Auto) 1 % (0-3) Neutrophils # (Auto) 9.0 x10^3/uL (1.8-7.7) Lymphocytes # (Auto) 0.9 x10^3/uL (1.0-4.8) Monocytes # (Auto) 1.4 x10^3/uL (0.0-1.1) Eosinophils # (Auto) 0.1 x10^3/uL (0.0-0.7) Basophils # (Auto) 0.1 x10^3/uL (0.0-0.2) Sodium Level 135 mmol/L (136-145) Potassium Level 4.7 mmol/L (3.5-5.1) Chloride Level 101 mmol/L (98-107) Carbon Dioxide Level 25 mmol/L (21-32) Anion Gap 9 (6-14) Blood Urea Nitrogen 31 mg/dL (7-20) Creatinine 1.3 mg/dL (0.6-1.0) Estimated GFR (Cockcroft-Gault) 39.0 Glucose Level 112 mg/dL (70-99) Calcium Level 8.6 mg/dL (8.5-10.1) Phosphorus Level 4.1 mg/dL (2.6-4.7) Albumin 2.8 g/dL (3.4-5.0) Prothrombin Time 18.0 SEC (11.7-14.0) Prothromb Time International Ratio 1.5 (0.8-1.1) Laboratory Tests Test 01/19/19 18:40 Prothrombin Time 18.0 SEC (11.7-14.0) Prothromb Time International Ratio 1.5 (0.8-1.1) Brief Hospital Course Ms Danielle is an 83 yo female w/ PMHx HTN, CKD who presented secondary to elevated blood pressure. Patient was at routine check up with advertising sales associate. Blood pressure was noted to be significantly elevated with SBP in the 200 range. Was referred to the ED for further evaluation and treatment. Patient denies any complaints including chest pain, palpitations, diaphoresis, SOA, or LE edema. No prior history of CAD. Was noted in AFIB with RVR upon arrival. Cardizem given. Seen by cardiology and nephrology. Found with no detectable left distal renal arterial flow on doppler. Has been on lisinopril with no bump in Cr outpatient. She is still feeling fatigued. After d/w specialists will defer a renal arteriogram as it would not change her treatment plan. Assessment/Plan 1. hypertensive urgency, SUBOPTIMAL CONTROL, labile 2. new onset a- fib rvr 3. morbid obesity 4. HYPERLIPIDEMIA 5. mild protein-caloric malnutrition 6. Left renal artery flow limitation plan ELIQUIS ADDED ALDACTONE 25 MG PO DAILY RENAL DUPLEX DOPPLER STUDY with left distal occlusion Nephrology following 41 min pt exam, chart review, > 50% of time spent with exam, chart review, pt care coordination Has nephrology and cardiology f/u. Discharge Information Condition at Discharge: Improved Follow Up: Weeks (1) Disposition/Orders: D/C to Home Scheduled Amiodarone Hcl (Amiodarone Hcl) 200 Mg Tablet, 200 MG PO DAILY for AFib for 30 Days, #30 Ref 1 Prescribed by: GRAHAM ROPER MD on 01/20/19 1106 Amlodipine Besylate (Amlodipine Besylate) 5 Mg Tablet, 5 MG PO DAILY for HTN for 30 Days, #30 Ref 1 Prescribed by: GRAHAM ROPER MD on 01/20/19 1106 Apixaban (Eliquis) 5 Mg Tablet, 5 MG PO BID for AFIB for 30 Days, #60 Ref 2 Prescribed by: GRAHAM ROPER MD on 01/20/19 1110 Fluconazole (Fluconazole) 200 Mg Tablet, 1 TAB PO DAILY for , #14 (Reported) Entered as Reported by: SHELBY HERNÁNDEZ RN on 01/15/191756 Last Action: Converted on 01/15/191936 by SHELBY HERNÁNDEZ RN Lisinopril (Lisinopril) 20 Mg Tablet, 1 TAB PO BID for , #30 Ref 5 (Reported) Entered as Reported by: SHELBY HERNÁNDEZ RN on 01/15/191756 Last Action: Continued on 01/15/191936 by SHELBY HERNÁNDEZ RN Metoprolol Tartrate (Metoprolol Tartrate) 25 Mg Tablet, 25 MG PO BID for Afib for 30 Days, #60 Ref 1 Prescribed by: GRAHAM ROPER MD on 01/20/19 1106 Spironolactone (Aldactone) 25 Mg Tablet, 25 MG PO DAILY for HTN for 30 Days, #30 Ref 1 Prescribed by: GRAHAM ROPER MD on 01/20/19 1106 GRAHAM ROPER MD Jan 20, 2019 11:13
[2019-01-20 11:17] VITALS: BP 156/67
--- NOTE | 2019-01-20 13:36 | PDOC ---
CARDIO Progress Notes Date and Time Date of Service 01/20/19 Time of Evaluation 1320 Subjective Subjective: No Chest Pain, No shortness of breath, No Palpitations Vitals Vitals Vital Signs Date Time Temp Pulse Resp B/P (MAP) Pulse Ox O2 Delivery O2 Flow Rate FiO2 01/20/19 11:17 98.1 54 18 156/67 (96) 97 Room Air 98.1 Weight Weight [ ] Input and Output Intake and Output Intake and Output 01/20/19 07:00 Intake Total 920 ml Balance 920 ml Intake Oral 920 ml # Voids 5 Laboratory Labs Laboratory Tests Test 01/19/19 18:40 Prothrombin Time 18.0 SEC (11.7-14.0) Prothromb Time International Ratio 1.5 (0.8-1.1) Microbiology Micro Microbiology 01/15/19 Urine Culture - Final, Complete 01/15/19 Urine Culture Result 1 (HERLINDA) - Final, Complete Physical Exam HEENT: Neck Supple W Full Motion Chest: Symmetric LUNGS: Clear to Auscultation Heart: S1S2, irregularly irregular Abdomen: Soft N/T Extremities: No Edema Neurology: alert, oriented, follow commands Assessment Assessment 1. AFIB with RVR, new onset. Rate controlled with metoprolol. Eliquis for stroke prophylaxis. 2-D echo showed normal LV systolic function. 2. Malignant hypertension: better controlled 3. CKD; Cr stable Recommendations Continue current medical therapy Eliquis for stroke prophylaxis; 30 days of samples provided July discharge from a CV standpoint and f/u in our office with Dr. Petersen as scheduled Consider outpatient CV EVA HERNANDEZ APRN Jan 20, 2019 13:36
--- NOTE | 2019-01-20 13:53 | NUR ---
Discharge Note: LIGIA MATUTE [address] [place] [address] Discharge instructions and discharge home medications reviewed with Patient and a copy given. All questions have been answered and understanding verbalized. The following instructions and handouts were given: Apixaban and A-fib Discontinued IV line Patient discharged to home with self care via private vehicle
== END 2019-01-20 13:54 | disposition home or self-care (01) | DRG 308 ==
LOC: ER 13:41 → 2 SOUTH 15:38
PROVIDERS: ADMIT Family Medicine; ATTEND Family Medicine
DX: I48.91 Unspecified atrial fibrillation (principal); N17.0 Acute kidney failure with tubular necrosis; E44.1 Mild protein-calorie malnutrition; I16.0 Hypertensive urgency; E78.5 Hyperlipidemia, unspecified; M19.90 Unspecified osteoarthritis, unspecified site; E66.01 Morbid (severe) obesity due to excess calories; K21.9 Gastro-esophageal reflux disease without esophagitis; I12.9 Hypertensive chronic kidney disease with stage 1 through stage 4 chronic kidney disease, or unspecified chronic kidney disease; N18.3 Chronic kidney disease, stage 3 (moderate); Z90.710 Acquired absence of both cervix and uterus; Z88.6 Allergy status to analgesic agent; Z88.1 Allergy status to other antibiotic agents; Z88.0 Allergy status to penicillin; Z88.8 Allergy status to other drugs, medicaments and biological substances; Z68.35 Body mass index [BMI] 35.0-35.9, adult; Z82.49 Family history of ischemic heart disease and other diseases of the circulatory system
CPT/HCPCS: 36415; 71045; 76770; 80048; 80053; 80061; 80069; 81001; 83735; 83880; 84443; 84484; 85025; 85610; 87086; 93005; 93306; 96374; J0360; J3490; 99285-25; G0378

== ENCOUNTER → 2019-02-23 | Outpatient (CLI) | payer MEDICARE ==
[2019-02-05 15:51] VITALS: BP 168/82
[~2019-02-23] MED LIST: AMIO200T4 PO; AMLO5TAB10 PO; APIX5TAB PO; FLUC200T4 PO; HYDR-2869 PO; LISI-334 PO; METO25TA4 PO; SPIR25TA PO
[2019-02-23 17:00] LABS: CALCIUM 8.8 mg/dL (8.5-10.1); GFR 52.8; POTASSIUM 4.2 mmol/L (3.5-5.1)
[2019-02-25 12:10] LABS: CALCIUM PTH 9.3 mg/dL (8.7-10.3); CREATININE PTH 0.95 mg/dL (0.57-1.00); PHOSPHORUS PTH 3.7 mg/dL (2.5-4.5); PTH INTACT 30 pg/mL (15-65)
== END | disposition home or self-care (01) ==
LOC: SPEC 16:36
PROVIDERS: ATTEND Family Medicine
DX: I12.9 Hypertensive chronic kidney disease with stage 1 through stage 4 chronic kidney disease, or unspecified chronic kidney disease (principal); N18.9 Chronic kidney disease, unspecified; E87.1 Hypo-osmolality and hyponatremia; Z79.01 Long term (current) use of anticoagulants; Z79.899 Other long term (current) drug therapy
CPT/HCPCS: 36415; 80048; 82306; 83970

== ENCOUNTER → 2020-06-29 | Outpatient (CLI) | payer MEDICARE ==
[2019-02-05 15:51] VITALS: BP 168/82
[~2020-06-29] MED LIST changes: -AMIO200T4 PO; +AMIO200T6 PO; +AMLO-186 PO; -AMLO5TAB10 PO; -LISI-334 PO; +LISI20TA18 PO
--- NOTE | 2020-06-29 13:17 | CARD ---
MR#: [id number] Date of Study: 06/29/2020 Ordering Physician: RICARDO NUNEZ, Referring Physician: RICARDO NUNEZ, Tech: Jodi Hull [facility] APPROVED REPORT EXAM: Two-dimensional and M-mode echocardiogram with Doppler and color Doppler. Other Information Quality : Fair Rhythm : Atrial Fibrillation INDICATION Atrial Fibrillation 2D DIMENSIONS RVDd3.3 (2.9-3.5cm)Left Atrium(2D)4.8 (1.6-4.0cm) IVSd1.7 (0.7-1.1cm)Aortic Root(2D)3.3 (2.0-3.7cm) LVDd4.6 (3.9-5.9cm)LVOT Diameter2.3 (1.8-2.4cm) PWd1.4 (0.7-1.1cm)LVDs3.5 (2.5-4.0cm) FS (%) 23.4 %SV45.8 ml Aortic Valve AoV Peak Jose E.126.8cm/sAoV VTI28.9cm AO Peak GR.6.4mmHgLVOT Peak Jose E.59.3cm/s AO Mean GR.4mmHgAVA (VMAX)1.91cm2 ENRIKE (VTI)2.20cm2 Mitral Valve MV E Mlypioew614.7cm/sMV DECEL [id number] MV A Wuaqgues00.3cm/sE/A Ratio2.2 Tricuspid Valve TR P. Jcrciltb649vz/sRAP [id number] TR Peak Gr.03pxQqNFNQ70cfIh Pulmonary Vein S1 Cmzgzzrg69.3cm/sD2 Njsotdoh95.8cm/s LEFT VENTRICLE The left ventricle is normal size. There is mild concentric left ventricular hypertrophy. The left ve ntricular systolic function is normal and the ejection fraction is within normal range. The Ejection Fraction is 60-65%. There is normal LV segmental wall motion. Transmitral Doppler flow pattern is Gra de III-reversible restrictive diastolic dysfunction. RIGHT VENTRICLE The right ventricle is normal size. The right ventricular systolic function is normal. ATRIA The left atrium is mildly dilated. The right atrium size is normal. The interatrial septum is intact with no evidence for an atrial septal defect or patent foramen ovale as noted on 2-D or Doppler imagi ng. AORTIC VALVE The aortic valve is mildly thickened but opens well. Doppler and Color Flow revealed no significant a ortic regurgitation. There is no significant aortic valvular stenosis. MITRAL VALVE Posterior mitral annular calcification is mild to moderate. There is no evidence of mitral valve prol apse. There is no mitral valve stenosis. Doppler and Color-flow revealed mild mitral regurgitation. TRICUSPID VALVE The tricuspid valve is normal in structure and function. Doppler and Color Flow revealed mild tricusp id regurgitation. The PA pressure was estimated at 52 mmHg. There is no tricuspid valve stenosis. PULMONIC VALVE The pulmonary valve is normal in structure and function. Doppler and Color Flow revealed mild pulmoni c valvular regurgitation. There is no pulmonic valvular stenosis. GREAT VESSELS The aortic root is normal in size. The ascending aorta is normal in size. The IVC is normal in size a nd collapses >50% with inspiration. PERICARDIAL EFFUSION There is no evidence of significant pericardial effusion. Critical Notification Critical Value: No <Conclusion> The left ventricle is normal size. The left ventricular systolic function is normal and the ejection fraction is within normal range. The Ejection Fraction is 60-65%. There is mild concentric left ventricular hypertrophy. Doppler and Color Flow revealed no significant aortic regurgitation. There is no significant aortic valvular stenosis. Doppler and Color-flow revealed mild mitral regurgitation. Doppler and Color Flow revealed mild tricuspid regurgitation. The PA pressure was estimated at 52 mmHg. Doppler and Color Flow revealed mild pulmonic valvular regurgitation. Signed by : Sixto Merida MD Electronically Approved : 06/29/2020 13:17:31
== END ==
LOC: ECHO 09:55
PROVIDERS: ATTEND Internal Medicine Cardiovascular Disease
DX: I08.8 Other rheumatic multiple valve diseases (principal); I48.91 Unspecified atrial fibrillation
CPT/HCPCS: 93306

== ENCOUNTER 2020-09-22 23:19 | Emergency (ER) | payer MEDICARE ==
[~2020-09-22] VITALS: Ht 152.4 cm; Wt 90.9 kg
[2020-09-23] MEDS ORDERED: DIPH,PERTUSS(ACELL),TET VAC/PF 0.5 ML SYRINGE. VAX IM ONE (01:00)
[2020-09-23] MEDS ORDERED: SURGICEL HEMOSTAT 4X8 EACH. TP ONE (01:00)
[2020-09-23 01:23] VITALS: BP 207/84
--- NOTE | 2020-09-23 01:28 | PHYS DOC ---
Past Medical History Past Medical History: Hypertension, Renal Failure Past Surgical History: Hysterectomy, Other Additional Past Surgical Histo: hernia repair, bladder suspension, left foot surgery Smoking Status: Never Smoker Alcohol Use: None Drug Use: None General Adult EDM: Chief Complaint: LACERATION/AVULSION HPI: HPI: Patient is a 85 year old female who was on Eliquis, she will try to cut her toenail earlier today, accidentally cut some skin off of her second toe, could not stop the bleeding so she came in for evaluation. Patient is not up-to-date on her vaccination status for tetanus. Review of Systems: Review of Systems: Constitutional: Denies fever or chills. [] Eyes: Denies change in visual acuity. [] HENT: Denies nasal congestion or sore throat. [] Respiratory: Denies cough or shortness of breath. [] Cardiovascular: Denies chest pain or edema. [] GI: Denies abdominal pain, nausea, vomiting, bloody stools or diarrhea. [] : Denies dysuria. [] Musculoskeletal: Denies back pain or joint pain. [] Integument: nonstopped bleeding from a wound on right 2nd toe. Neurologic: Denies headache, focal weakness or sensory changes. [] Endocrine: Denies polyuria or polydipsia. [] Lymphatic: Denies swollen glands. [] Psychiatric: Denies depression or anxiety. [] Heart Score: C/O Chest Pain: N/A Risk Factors: Risk Factors: DM, Current or recent (<one month) smoker, HTN, HLP, family history of CAD, obesity. Risk Scores: Score 0 - 3: 2.5% MACE over next 6 weeks - Discharge Home Score 4 - 6: 20.3% MACE over next 6 weeks - Admit for Clinical Observation Score 7 - 10: 72.7% MACE over next 6 weeks - Early Invasive Strategies Current Medications: Current Medications Medications (Trade) Dose Ordered Sig/Ricardo Start Time Stop Time Status Last Admin Dose Admin Cellulose (Surgicel Hemostat 4x8) 1 each 1X ONCE 09/23/20 01:00 09/23/20 01:01 DC 09/23/20 01:06 1 EACH Diphtheria/ Tetanus/Acell Pertussis (ADACEL TDap SYRINGE) 0.5 ml ONCE ONCE 09/23/20 01:00 09/23/20 01:01 DC 09/23/20 01:06 0.5 ML Allergies: Allergies: Allergies Coded Allergies Type Severity Reaction Last Updated Verified Penicillins Allergy Intermediate 01/16/19 Yes allopurinol Allergy Intermediate 01/16/19 Yes cephalexin Allergy Intermediate rash 01/15/19 Yes doxycycline Allergy Intermediate 01/16/19 Yes naproxen Allergy Intermediate rash/hives 01/15/19 Yes azithromycin Allergy Mild "made me sick" 01/16/19 Yes omeprazole Allergy Mild 01/16/19 Yes Physical Exam: PE: Constitutional: Well developed, well nourished, no acute distress, non-toxic appearance. [] Back: No tenderness, no CVA tenderness. [] Extremities: No tenderness, no cyanosis, no clubbing, ROM intact, no edema. SMALL SKIN AVULSION OFF THE TIP OF RIGHT 2ND TOE, ACTIVELY BLEEDING. Neurologic: Alert and oriented X 3, normal motor function, normal sensory function, no focal deficits noted. [] Psychologic: Affect normal, judgement normal, mood normal. [] Current Patient Data: Vital Signs: Vital Signs Date Time Temp Pulse Resp B/P (MAP) Pulse Ox O2 Delivery O2 Flow Rate FiO2 09/23/20 00:08 97.7 67 16 171/77 (108) 98 Room Air 97.7 EKG: EKG: [] Radiology/Procedures: Radiology/Procedures: Surgicafoam was applied to the wound on the right 2nd toe, bleeding was stopped. Patient was given tetanus booster in the ER. was discharged home in stable condition. Course & Med Decision Making: Course & Med Decision Making Pertinent Labs and Imaging studies reviewed. (See chart for details) [] Dragon Disclaimer: Dragon Disclaimer: This electronic medical record was generated, in whole or in part, using a voice recognition dictation system. Departure Departure Impression: Primary Impression: Skin abrasion Additional Impression: Avulsion of skin Disposition: HOME / SELF CARE / HOMELESS Condition: STABLE Referrals: SYLVIA ALBERTO MD (PCP) Follow up with your doctor on Saturday as needed Patient Instructions: Abrasions, Deep Skin Avulsion, VIS, Tetanus, Diphtheria, and Pertussis (Tdap) - CDC Additional Instructions: Thank you for visiting our Emergency Department. We appreciate you trusting us with your care. If any additional problems come up don't hesitate to return to visit us. Please follow up with your primary care provider so they can plan additional care if needed and know about the problem that you had. If symptoms worsen come back to the Emergency Department. Any concerning symptoms that start such as chest pain, shortness of air, weakness or numbness on one side of the body, running high fevers or any other concerning symptoms return to the ER. BAILEE THAKUR DO Sep 23, 2020 01:28
== END 2020-09-23 01:41 | disposition home or self-care (01) ==
LOC: ER 23:19
DX: S91.204A Unspecified open wound of right lesser toe(s) with damage to nail, initial encounter (principal); I12.9 Hypertensive chronic kidney disease with stage 1 through stage 4 chronic kidney disease, or unspecified chronic kidney disease; N18.9 Chronic kidney disease, unspecified; Z88.0 Allergy status to penicillin; Z88.1 Allergy status to other antibiotic agents; Z88.8 Allergy status to other drugs, medicaments and biological substances; W26.8XXA Contact with other sharp object(s), not elsewhere classified, initial encounter; Y93.89 Activity, other specified; Y92.89 Other specified places as the place of occurrence of the external cause; Y99.8 Other external cause status
CPT/HCPCS: 90471; 90715; 99283